=== PATIENT | male | born 1945 | race Caucasian/White ===

== ENCOUNTER 2019-09-01 09:09 | Emergency (ER) | payer MEDICARE, SELFPAY ==
--- NOTE | ~2019-09-01 | XR_ITS ---
XR hip RT min 2V DATE: 09/01/2019 09:42 INDICATION: Fall 5 days ago. Right hip pain. TECHNIQUE: AP and crosstable lateral views of right hip COMPARISON: 11/01/2011 right hip FINDINGS: There is mild to moderate right hip osteoarthritis. There is chondrocalcinosis. No fracture, dislocation, avascular necrosis or bone destruction of the right hip is evident. Normal alignment at the right sacroiliac joint and pubic symphysis. IMPRESSION: Osteoarthritis Chondrocalcinosis Reviewed, dictated and finalized at location B.
--- NOTE | ~2019-09-01 | XR_ITS ---
XR femur RT min 2V DATE: 09/01/2019 09:41 INDICATION: Fall 5 days ago. Posterior lateral right hip pain. TECHNIQUE: AP and lateral views of the right femur COMPARISON: 09/01/2019] right hip FINDINGS: There is mild/moderate osteoarthritis at the right hip joint. There is chondrocalcinosis at the right hip joint. There is osteoarthritis at the right knee joint involving particularly the patellofemoral compartment , including mild to moderate loss of height at the medial compartment.. No fracture, dislocation, periosteal reaction or bone destruction of the right femur is evident. No a vascular necrosis is evident. Of the right femur Femoral and popliteal arterial calcifications. IMPRESSION: Osteoarthritis at the hip and knee joints Chondrocalcinosis at right hip joint No fracture or dislocation Reviewed, dictated and finalized at location B.
[2019-09-01 09:12] VITALS: BP 132/65; PULSE 59; RESP 20; TEMP 36.6; O2SAT 94
--- NOTE | 2019-09-01 09:16 | ED.LOWEXIN ---
HPI - Extremity Injury (Lower) General Chief Complaint: Extremity Injury, Lower Stated Complaint: fall/rt hip/leg injury Time Seen by Provider: 09/01/19 09:25 Source: patient, family and RN notes reviewed History of Present Illness HPI Narrative: Patient is a 74-year-old male that presents the urgent care with complaints of fall to right hip. Patient states that he was getting out of the car on Saturday and fell into the area of the door. Patient states that the pain has worsened over the last couple days and his PCP advised him to stay out of the emergency room if possible. Patient states that he is supposed to be using a cane but does not use any his assistive walking devices. Patient also reports of being on a blood thinner. Denies any loss of consciousness or hitting his head. No other acute complaints. No acute distress noted. Patient read the plan of care. Related Data Home Medications Medication Instructions Recorded Confirmed amiodarone 200 mg tablet 200 mg PO DAILY tablet 05/21/19 06/06/19 carvedilol 25 mg tablet 25 mg PO Q12H 05/21/19 06/06/19 gabapentin 300 mg capsule 300 mg PO TID 05/21/19 06/06/19 lisinopril 10 mg tablet 10 mg PO DAILY 05/21/19 06/06/19 nitroglycerin 0.4 mg sublingual 0.4 mg SUBLINGUAL Q5M PRN 05/21/19 06/06/19 tablet bupropion HCl 100 mg tablet 100 mg PO DAILY tablet 06/06/19 06/06/19 insulin glargine U-300 conc 300 30 unit SUB-Q DAILY ml 06/06/19 06/06/19 unit/mL (1.5 mL) subcutaneous pen insulin glulisine U-100 100 5 - 10 unit SUB-Q TID ml 06/06/19 06/06/19 unit/mL subcutaneous solution Toujeo Max U-300 SoloStar 09/01/19 apixaban [Eliquis] mg 09/01/19 furosemide 09/01/19 indapamide mg 09/01/19 insulin glargine U-300 conc 09/01/19 tramadol mg PO 09/01/19 Allergies Allergy/AdvReac Type Severity Reaction Status Date / Time rofecoxib Allergy Intermediate Itching Verified 08/25/19 14:36 acetaminophen [From [place]] AdvReac Intermediate BREATHING Verified 08/25/19 14:39 PROBLEMS hydrocodone [From [place]] AdvReac Intermediate BREATHING Verified 08/25/19 14:39 PROBLEMS CLOPIDOGREL BISULFATE Allergy Mild ITCHING Uncoded 08/25/19 14:36 Review of Systems Review of Systems: Narrative: CONSTITUTIONAL: Denies fever, chills, or sweats. EYES: Denies visual changes, redness, or discharge. ENT: Denies rhinorrhea, congestion, sore throat, or otalgia. CARDIOVASCULAR: Denies chest pain, palpitations, or edema. RESPIRATORY: Denies cough or dyspnea. GASTROINTESTINAL: Denies abdominal pain, nausea, vomiting, or diarrhea. GENITOURINARY: Denies dysuria or hematuria. SKIN: Denies rash or itching. MUSCULOSKELETAL: Reports of right hip pain radiating down the right leg NEUROLOGIC: Denies headache, numbness, or weakness. All other systems reviewed are negative, except as documented in HPI. [facility] Past Medical History Medical History (Updated 09/01/19 @ 10:16 by JOURDAN Conroy) Arthritis H/O cardiac pacemaker ICD (implantable cardioverter-defibrillator) in place Surgical History Surgical History H/O arthroscopy of knee H/O arthroscopy of shoulder Hx of hernia repair Hx of sinus surgery Hx of transurethral resection of prostate Social History Social History Smoking status: Current every day smoker Second hand tobacco smoke exposure: No Smoking end date: 06/17/14 Alcohol intake: never Exam Narrative: Exam Narrative: GENERAL: This is a well-nourished, well-developed patient, in no apparent distress. HEAD: normocephalic, atraumatic. EYES: PERRL. Sclera clear/white. Vision is grossly intact. EARS: External ears normal NOSE: External nose normal with no obvious nasal discharge THROAT: Mucous membranes moist NECK: Neck supple CARDIOVASCULAR: Regular rate and rhythm without murmurs, gallops, or rubs. RESPIRATORY: Clear to auscultation. Breath sounds
== END 2019-09-01 10:18 | disposition home or self-care (01) ==
PROVIDERS: Emergency Provider Nurse Practitioner Family; PCP Family Medicine
DX: M25.551 Pain in right hip (principal); F17.200 Nicotine dependence, unspecified, uncomplicated; M19.90 Unspecified osteoarthritis, unspecified site; Z95.810 Presence of automatic (implantable) cardiac defibrillator; W19.XXXA Unspecified fall, initial encounter
CPT/HCPCS: 73502; 73552; 99214; G0463

== ENCOUNTER 2019-09-23 18:52 | Inpatient (IN) | payer MEDICARE, SELFPAY ==
[2019-09-23] VITALS (8 sets, daily range): BP systolic 155–187; BP diastolic 73–87; PULSE 59–65; RESP 14–28; TEMP 36.2–36.8; O2SAT 90–97; BMI 24.6
--- NOTE | ~2019-09-23 | US_ITS ---
EXAMINATION: US retroperitoneal comp DATE: 09/25/2019 13:06 INDICATION: Renal failure TECHNIQUE: Multiple grayscale and Doppler ultrasound images of the kidneys were obtained. COMPARISON: CT, 10/06/2017 FINDINGS: The right kidney measures 10.7 x 3.8 x 4.1 cm. The left kidney measures 11.2 x 5.6 x 4.6 cm . A 6 mm hypoechoic area in the lateral aspect of the kidney likely represents a small cyst. The kidn eys demonstrate increased parenchymal echogenicity. There is no hydronephrosis. The bladder is normal . IMPRESSION: 1. Medical renal disease. Reviewed, dictated and finalized at location B. IMPRESSION: 1. Medical renal disease.
--- NOTE | ~2019-09-23 | US_ITS ---
EXAMINATION: US venous doppler UE EXAM DATE: 09/24/2019 14:25 INDICATION: Left arm swelling. TECHNIQUE: Multiple grayscale, color flow, Doppler sonographic images of the left upper extremity vei ns obtained by technologist. Compression was performed where able. There is no prior study for coral chen. FINDINGS: Left upper extremity: Jugular vein: ------------> Normal. Subclavian vein: --------> Normal. Axillary vein:------------> Normal. Brachial vein:-----------> Normal. Basilic vein: ------------> Normal. Cephalic vein: ----------> Normal. Radial vein: ------------> Normal. Ulnar vein: > Normal. IMPRESSION: No deep venous thrombosis of the left upper extremity. Reviewed, dictated and finalized at location A.
--- NOTE | ~2019-09-23 | XR_ITS ---
XR chest 1V portable 09/23/2019 20:13 Indication: Dyspnea. CHF. Procedure: AP portable chest Comparison: Comparison to multiple prior studies sequentially, with oldest reviewed study dated 06/28. Findings: Moderate cardiomegaly. Interstitial edema. Small pleural effusions. No pneumothorax. The th ere are new pacemaker leads since prior examination. Impression: 1: Cardiomegaly with interstitial edema. 2: Small pleural effusions. Reviewed, dictated and finalized at location A. Impression: 1: Cardiomegaly with interstitial edema. 2: Small pleural effusions.
--- NOTE | ~2019-09-23 | US_ITS ---
EXAMINATION: US venous doppler LE EXAM DATE: 09/24/2019 14:25 INDICATION: Bilateral leg swelling. TECHNIQUE: Multiple grayscale, color flow and Doppler images of the lower extremity deep venous syste ms bilaterally were obtained and reviewed. There is no prior study for comparison. FINDINGS: Right side: The right common femoral, femoral and profunda veins demonstrate normal color flow, respi ratory variation, augmentation and compressibility. Compressibility, color flow confirmed within the right popliteal, posterior tibial, peroneal, and greater saphenous veins. Left side: The left common femoral, femoral and profunda veins demonstrate normal color flow, respira tory variation, augmentation and compressibility. Compressibility, color flow confirmed within the l eft popliteal, posterior tibial, peroneal, and greater saphenous veins. IMPRESSION: 1. No lower extremity deep venous thrombosis bilaterally. Reviewed, dictated and finalized at location A.
--- NOTE | 2019-09-23 19:27 | ECG_ITS ---
Measurements Intervals [place] Rate: 60 P: 202 MT: 154 QRS: 189 QRSD: 210 T: 9 QT: 564 QTc: 564 Interpretive Statements ELECTRONIC ATRIAL PACEMAKER ELECTRONIC VENTRICULAR PACEMAKER BASELINE WANDER- I, II, V2-V6 NO FURTHER INTERPRETATION IS POSSIBLE ATYPICAL ECG Electronically Signed On 09-24-2019 7:04:35 CDT by Bertrand Grimaldo D.O.
--- NOTE | 2019-09-23 19:53 | PC.NURSE ---
Assumed care of pt at this time. report from ENID Hernandez
[2019-09-23 20:16] LABS: Basophils Absolute Auto 0.1 K/mm3 (0.0-0.1); Basophils Percent Auto 0.7 % (0.2-1.2); Eosinophils Absolute Auto 0.1 K/mm3 (0-0.3); Eosinophils Percent Auto 1.2 % (0-4.4); Hematocrit 31.6 % (42.0-52.0); Hemoglobin 9.7 g/dL (14.0-18.0); Immature Granulocyte Absolute 0.02 K/mm3 (0.00-0.031); Immature Granulocyte Percent A 0.3 % (0-0.5); Lymphocytes Absolute Auto 0.86 K/mm3 (0.9-3.2); Lymphocytes Percent Auto 12.4 % (18.3-44.2); Mean Corpuscular HGB Conc 30.7 g/dl (32-36); Mean Corpuscular Hemoglobin 25.4 pg (26-34); Mean Corpuscular Volume 82.7 fl (80-100); Mean Platelet Volume 11.1 fl (7.4-10.4); Monocytes Absolute Auto 0.5 K/mm3 (0.1-0.6); Monocytes Percent Auto 6.5 % (2.6-8.5); Neutrophils Absolute Auto 5.5 K/mm3 (1.3-6.7); Neutrophils Percent Auto 78.9 % (45.5-73.1); Platelet Count Result 210 k/mm3 (150-375); Red Blood Count 3.82 M/mm3 (4.6-6.20); Red Cell Distribution Width 15.1 % (11.5-14.5); White Blood Count 6.9 K/mm3 (4.5-10.0)
[2019-09-23 20:29] LABS: Alanine Aminotransferase 25 U/L (4-50); Albumin Level 3.6 g/dL (3.5-5.1); Alkaline Phosphatase 297 U/L (38-126); Aspartate Amino Transferase 29 U/L (17-59); Bilirubin,Total 0.8 mg/dL (0.2-1.3); Blood Urea Nitrogen 52 mg/dL (9-20); Calcium 8.6 mg/dL (8.4-10.2); Carbon Dioxide 29 mmol/L (22-30); Chloride 103 mmol/L (98-107); Estimated CRCL calculation 22 ml/min; Estimated Glomerular Filt Rate 23; Glucose 255 mg/dL (75-110); Potassium 3.3 mmol/L (3.4-5.0); Sodium 138 mmol/L (137-145)
[2019-09-23 20:43] LABS: NT Pro B Type Natriuretic Pept 7390 PG/ML (5-100); Troponin I 0.086 ng/mL (0.000-0.034)
[2019-09-23 20:54] LABS: INR 1.3; Partial Thromboplastin Time 32.7 SECONDS (22.3-36.8); Prothrombin Time 16.2 Seconds (11.1-14.7)
[2019-09-23 21:03] LABS: D Dimer 1.43 ug/mL (<0.48)
--- NOTE | 2019-09-23 22:08 | ED.SOB ---
HPI - SOB/Dyspnea General Chief Complaint: Shortness of Breath/Dyspnea Stated Complaint: SOB,EDEMA, HX CHF Time Seen by Provider: 09/23/19 19:18 Source: patient and EMS Mode of arrival: EMS Limitations: other (pt poor hostorian, most hx from s.o.) History of Present Illness HPI Narrative: 74 m h/o uri sx for 2-3 weeks which have been treated twice with abx, most recently finishing up amoxcil now had been improving until yesterday when they report he started getting more sob, and swelling of ble and lue he had a cough but it is improved, no fevers MD elicited complaint: cough and chest pain Pertinent past history: congestive heart failure Onset (ago): week(s) Severity: moderate Exacerbating factors: exertion Relieving factors: nothing Known history of: congestive heart failure (aicd) Related Data Home Medications Medication Instructions Recorded Confirmed amiodarone 200 mg tablet 200 mg PO DAILY tablet 05/21/19 06/06/19 carvedilol 25 mg tablet 25 mg PO Q12H 05/21/19 06/06/19 gabapentin 300 mg capsule 300 mg PO TID 05/21/19 06/06/19 lisinopril 10 mg tablet 10 mg PO DAILY 05/21/19 06/06/19 nitroglycerin 0.4 mg sublingual 0.4 mg SUBLINGUAL Q5M PRN 05/21/19 06/06/19 tablet bupropion HCl 100 mg tablet 100 mg PO DAILY tablet 06/06/19 06/06/19 insulin glargine U-300 conc 300 30 unit SUB-Q DAILY ml 06/06/19 06/06/19 unit/mL (1.5 mL) subcutaneous pen insulin glulisine U-100 100 5 - 10 unit SUB-Q TID ml 06/06/19 06/06/19 unit/mL subcutaneous solution Toujeo Max U-300 SoloStar 09/01/19 apixaban [Eliquis] mg 09/01/19 furosemide 09/01/19 indapamide mg 09/01/19 insulin glargine U-300 conc 09/01/19 tramadol mg PO 09/01/19 albuterol sulfate INHALATION 09/23/19 amiodarone 09/23/19 amlodipine 09/23/19 amoxicillin 09/23/19 apixaban [Eliquis] mg 09/23/19 carvedilol 09/23/19 gabapentin 09/23/19 lisinopril 09/23/19 losartan 09/23/19 nitroglycerin mg 09/23/19 Allergies Allergy/AdvReac Type Severity Reaction Status Date / Time rofecoxib Allergy Intermediate Itching Verified 09/23/19 19:06 acetaminophen [From [place]] AdvReac Intermediate BREATHING Verified 09/23/19 19:06 PROBLEMS hydrocodone [From [place]] AdvReac Intermediate BREATHING Verified 09/23/19 19:06 PROBLEMS CLOPIDOGREL BISULFATE Allergy Mild ITCHING Uncoded 09/23/19 19:06 Review of Systems Review of Systems: All systems reviewed & are unremarkable except as noted in HPI and below Constitutional: Constitutional: Denies chills, Denies fever(s) and Reports weakness ENT: Denies dysphagia and Denies dizziness Cardiovascular: Cardiovascular: Denies chest pain and Denies rapid heart rate Respiratory: Respiratory: Denies chest congestion, Reports cough, Reports dyspnea and Denies wheezing Gastrointestinal: Gastrointestinal: Denies abdominal pain, Denies diarrhea and Denies vomiting Musculoskeletal: Musculoskeletal: Reports joint swelling Neurologic: Denies headache(s) and Denies weakness PMFSH Past Medical History Medical History Arthritis H/O cardiac pacemaker ICD (implantable cardioverter-defibrillator) in place Surgical History Surgical History H/O arthroscopy of knee H/O arthroscopy of shoulder Hx of hernia repair Hx of sinus surgery Hx of transurethral resection of prostate Family History Family History Father Depression Family history of alcoholism Malignant neoplasm of prostate Acute myocardial infarction, Onset Age: 70 Family history of cardiovascular disease, Onset Age: 70 Sibling Family history of hepatitis Malignant neoplasm of prostate Mother Family history of malignant neoplasm of brain, Onset Age: 81 Other Cerebrovascular accident Diabetes mellitus Family history of kidney disease Hypertension Soci
[2019-09-23] MEDS: POTASSIUM CHLORIDE 20 MEQ PACKET (FOR LIQUID) 40 MEQ PO (22:13)
[2019-09-23] MEDS: NITROGLYCERIN OINTMENT 1 INCH DOSE TRANSDERM (22:14)
[2019-09-23] MEDS: FUROSEMIDE INJ 100 MG/10 ML VIAL 80 MG IV PUSH (22:17)
[2019-09-23] MEDS: ENOXAPARIN 80 MG/0.8 ML SYRINGE SUB-Q (22:19)
--- NOTE | 2019-09-23 23:07 | ADMGEN ---
This patient, Arnol Mason, was admitted to IMU Room 206-01 from ER 09/23/19 1725. Patient/family oriented to hospital policies and general routines including ID bracelet, bed and alarms, visiting hours, pain management, procedures, bathroom and other care routines, personal items, smoking policy, room service/diet, and visiting hours. Valuables list has been completed. Information on how to activate the Rapid Response Team has been discussed. Patient/Family are encouraged to report perceived risks to care and to ask questions if they do not understand what they are told or what they should do.
[2019-09-23 23:52] LABS: Troponin I 0.082 ng/mL (0.000-0.034)
[2019-09-24] VITALS (15 sets, daily range): BP systolic 147–180; BP diastolic 69–75; PULSE 59–61; RESP 16–24; TEMP 36–36.6; O2SAT 94–99
[2019-09-24 02:11] LABS: Blood Urea Nitrogen 48 mg/dL (9-20); Calcium 8.1 mg/dL (8.4-10.2); Carbon Dioxide 27 mmol/L (22-30); Chloride 105 mmol/L (98-107); Estimated CRCL calculation 23 ml/min; Estimated Glomerular Filt Rate 24; Glucose 238 mg/dL (75-110); Potassium 3.4 mmol/L (3.4-5.0); Sodium 138 mmol/L (137-145)
[2019-09-24] MEDS: NITROGLYCERIN OINTMENT 1 INCH DOSE TRANSDERM (05:50)
--- NOTE | 2019-09-24 06:28 | PM.IMHP ---
H&P: HPI History of Present Illness Chief complaint: Shortness of breath, swelling Narrative: Date and time of patient contact: 09/24/2019 at 5:30 a.m. Arnol Mason is a 74 year old male with a past medical history of systolic and diastolic congestive heart failure, atrial fibrillation, and type 2 diabetes mellitus who presented to the ER with shortness of breath and increased swelling. The patient reports that he has been noticing increased swelling of bilateral lower extremities and left upper extremity for the last 3 months. He has gained about 20 lb in the last 2 months with the last 10 lb being in the last 7 days. He reports that he has had a dry cough He had been treated with 2 different courses of antibiotics and had just finished a course of amoxicillin yesterday. He thought that his cough was getting better. However given that his swelling had continued to worsen he decided come to the ER. He noticed that the swelling was 1st as lower legs and mildly in his arm. But as time went on the edema as moved up his legs in over the last week has been in his legs and abdomen and his left arm has become markedly more swollen. He had had a prior DVT he reports that he has always had intermittent chest pain ever since his 1st MO in 1998. He has had multiple caths but is coronary artery disease has never been above 30 or 40%. He has not had any changes in his intermittent chest pain or any increased chest pain recently. He denies any palpitations. He has had increased dyspnea on exertion and orthopnea. He has not had any fevers. He has chronically chilled since he was started on blood thinners about 6 months ago. He has had progressive decrease in his appetite over the last 3 years. Upon review of old records it appears that the patient was being considered for Watchman procedure and recently was given orders for an outpatient echocardiogram and cardiac catheterization in April 2019. It is unclear if he has already had these procedures done or there is still pending. Review of Systems Review of Systems: Narrative: 12 systems were reviewed with pertinent positives and negatives per HPI. Except as documented in the HPI, all other systems were reviewed and are negative. [facility] Past Medical History Medical History (Updated 09/24/19 @ 08:11 by Hue He DO) Arthritis Atrial fibrillation/flutter Managed by Dr. Jeff at [facility] on amiodarone and Eliquis since March 2018, with discussion of Watchman procedure April 2019 due to a concern for falls BPH (benign prostatic hyperplasia) Cataract of left eye Chronic kidney disease, stage 3 Dr. Guzman Coronary artery disease Nonobstructive Diabetic nephropathy Diabetic neuropathy DVT of left axillary vein, acute September 2018 GERD without esophagitis Hypertensive retinopathy of both eyes Mild pulmonary hypertension Mixed hyperlipidemia Non-proliferative diabetic retinopathy, both eyes Severe in the right eye mild in the left Systolic congestive heart failure Echocardiogram 07/17/2018 normal left ventricular size. Moderately reduced global left ventricular systolic function with akinetic inferior basal wall, ejection fraction 35% normal right ventricular size and systolic function, pacemaker seen right atrium/ventricle, severe concentric left ventricular hypertrophy, speckled appearance of myocardium suggestive of infiltrative process, mild aortic regurgitation. Elevated left ventricular and diastolic pressure, right ventricular systolic pressure of 44 consistent with mild pulmonary hypertension TIA (transient ischemic attack) Surgical History Surgical History (Updated 09/24/19 @ 07:33 by Hue He, DO) Biventricular implantable cardioverter-defibrillator (ICD) in situ Upgrade to Bi V ICD [facility] 08/05/2018 H/O arthroscopy of knee H/O arthroscopy of shoulder H/O cardiac pacemaker Hx of hernia repair Bilateral inguinal hernia repair in 2013 with mesh with failure of t
[2019-09-24] MEDS: ASPIRIN 81 MG CHEWABLE TABLET PO (08:08)
[2019-09-24] MEDS: POTASSIUM CHLORIDE 20 MEQ TABLET 40 MEQ PO (08:08)
[2019-09-24] MEDS: GABAPENTIN 300 MG CAPSULE PO ×3 (08:08→16:12)
[2019-09-24] MEDS: APIXABAN 5 MG TABLET PO ×2 (08:08→16:13)
[2019-09-24] MEDS: carvediloL 25 MG TABLET PO ×2 (08:08→20:26)
[2019-09-24] MEDS: FUROSEMIDE INJ 40 MG/4 ML VIAL IV PUSH ×2 (08:08→20:26)
[2019-09-24] MEDS: INDAPAMIDE 2.5 MG TABLET PO (08:08)
[2019-09-24] MEDS: PANTOPRAZOLE 40 MG TABLET PO ×2 (08:09→16:12)
[2019-09-24] MEDS: AMIODARONE HCL 200 MG TABLET PO (08:09)
[2019-09-24] MEDS: INSULIN GLARGINE (*BKC) 100 UNITS/ML 30 UNITS SUB-Q (08:09)
[2019-09-24] MEDS: buPROPion HCL 100 MG TABLET PO (08:09)
[2019-09-24] MEDS: AMLODIPINE BESYLATE 5 MG TABLET PO (08:09)
[2019-09-24] MEDS: LOSARTAN POTASSIUM 50 MG TABLET PO (08:12)
[2019-09-24 08:26] LABS: Glucose Point of Care 153 (65-105)
[2019-09-24 10:44] LABS: Glucose Point of Care 40 (65-105)
[2019-09-24] MEDS: GLUCOSE ORAL GEL 15 GM OF GLUCSE IN 37.5 GM TUBE PO ×2 (10:52→11:20)
[2019-09-24 11:45] LABS: Glucose Point of Care 72 (65-105)
[2019-09-24] MEDS: DEXTROSE 50% 25 GM/50 ML SYRINGE IV PUSH (11:45)
[2019-09-24 14:41] LABS: Glucose Point of Care 61 (65-105)
[2019-09-24 14:41] LABS: Glucose Point of Care 118 (65-105)
--- NOTE | 2019-09-24 17:05 | PM.IMPN ---
Progress Note: A&P Assessment and Plan (1) CHF exacerbation: Qualifiers: Heart failure type: systolic Qualified Code(s): I50.23 - Acute on chronic systolic (congestive) heart failure Code(s): I50.9 - Heart failure, unspecified Status: Acute Assessment and Plan: The pt has a hx of CHF with EF 35% on echo 06/2018. The pt reports recent 15-20lb weight gain with 10 lb in the past 7 days. He reports that he was not taking his lasix for 1 month up until 4 days ago. He endorses lower extremity edema, dyspnea, PND, and orthopnea. BNP was elevated at 7390. He has had excellent urine output with IV lasix. Will hold the patient's oral Lasix. He has been placed on Lasix 40 mg IV b.i.d. He received a dose of Lasix 80 mg in the ER. Will continue to monitor. Continue to monitor daily weights Continue to monitor strict input and output 2gm sodium restriction (2) Chronic kidney disease, stage 3: Code(s): N18.3 - Chronic kidney disease, stage 3 (moderate) Status: Acute Assessment and Plan: The patient's Cr is 2.6. BUN is 48. I am unsure of his baseline. Cr from 03/26/18 was 1.4. Will try to obtain labs for a more recent baseline Will monitor creatinine closely with diuresis (3) Type 2 diabetes mellitus with hyperglycemia: Qualifiers: Diabetes mellitus terminal computer operator insulin use: with terminal computer operator use Qualified Code(s): E11.65 - Type 2 diabetes mellitus with hyperglycemia; Z79.4 - snf (current) use of insulin Code(s): E11.65 - Type 2 diabetes mellitus with hyperglycemia Status: Chronic Assessment and Plan: The pt had hypoglycemia this AM with blood sugar of 40. He was treated with PO glucose replacement. Will hold lantus and glulisine for now and monitor due to hypoglycemia Continue ACHS Continue SSI Continue hypoglycemia protocol (4) Hypokalemia: Code(s): E87.6 - Hypokalemia Status: Acute Assessment and Plan: The patient's potassium was 3.3 in the ED. He received 40mEq in the ED and an additional 40mEq this AM. Will recheck potassium this afternoon. Will continue to monitor (5) Essential (primary) hypertension: Code(s): I10 - Essential (primary) hypertension Status: Chronic Assessment and Plan: Blood pressures are reviewed and are elevated to 180/70 this afternoon. Continue amlodipine Continue carvedilol Continue losartan Resume lisinopril Will continue to monitor (6) Major depressive disorder, single episode, unspecified: Code(s): F32.9 - Major depressive disorder, single episode, unspecified Status: Chronic Assessment and Plan: Continue bupropion (7) Atrial fibrillation/flutter: Code(s): I48.91 - Unspecified atrial fibrillation; I48.92 - Unspecified atrial flutter Status: Chronic Assessment and Plan: The pt has a hx of atrial fibrillation. He is s/p pacemaker and is being considered for Watchman by Dr. Jeff due to concern for fall risk. His rate is well-controlled today and telemetry was reviewed with paced rhythm. Continue amiodarone Continue apixaban Continue carvedilol (8) Chronic back pain: Code(s): M54.9 - Dorsalgia, unspecified; G89.29 - Other chronic pain Status: Chronic Assessment and Plan: The patient's pain is well-controlled today. Continue tramadol and gabapentin (9) Coronary artery disease: Code(s): I25.10 - Atherosclerotic heart disease of [place] coronary artery without angina pectoris Status: Chronic Assessment and Plan: The pt has a hx of CAD. He is established with Dr. Jeff at [facility]. He underwent cardiac cath 02/2018 with nonobstructive coronary artery disease. Troponins was elevated at 0.086 with a flat trend to 0.080, likely due to his acute CHF exacerbation and renal insufficiency. EKG revealed paced rhythm with normal rate. He saw Dr. Jeff 06/19/19 who discussed watchm
[2019-09-24 18:29] LABS: Glucose Point of Care 73 (65-105)
[2019-09-24 20:43] LABS: Potassium 3.4 mmol/L (3.4-5.0)
[2019-09-24 20:54] LABS: Glucose Point of Care 98 (65-105)
[2019-09-25] VITALS (17 sets, daily range): BP systolic 147–185; BP diastolic 67–83; PULSE 59–68; RESP 16–20; TEMP 35.9–36.9; O2SAT 90–97
--- NOTE | 2019-09-25 | ECHO_ITS ---
Patient Info Name: Arnol Mason Age: 74 years : 1945 Gender: Male Ht: 70 in Wt: 173 lbs BSA: 1.98 m2 HR: 82 bpm BP: 183 / 67 mmHg Heart Rhythm: Paced Technical Quality: Good Exam Date: 09/25/2019 8:21 AM Exam Location: [facility] Pulmonary Patient Status: Inpatient Admit Date: 09/23/2019 Staff Ordering Physician: Keena Brand PA-C It Applications Manager: Arnol Waldrop RDCS Attending Provider: Keena Brand PA-C Referring Physician: Sunday LEAL; Exam Type: CA echo doppler color flow Study Info Indications R06.00 - Dyspnea, unspecified Complete two-dimensional, color flow and Doppler transthoracic echocardiogram is performed. Strain analysis performed. History/Risk Factors CHF exacerbation; CAD w/ ICD, dyspnea, CKD III, edema. Summary 1. Left ventricular chamber dimension is moderately enlarged. 2. Left ventricular systolic function is moderately reduced, estimated at 35-40%. 3. There is severe concentric increased left ventricular wall thickness. 4. The left ventricular diastolic function is grade III diastolic dysfunction. 5. E/e' 23 is significantly elevated. 6. Global longitudinal strain is abnormal at -8.8%. 7. Linear artifact in right ventricle suggestive of catheter(s), pacemaker lead(s), or ICD lead(s). 8. Left atrial chamber dimension is moderately enlarged. 9. Right atrial chamber dimension is moderately enlarged. 10. Linear artifact in the right atrium suggestive of catheter(s), pacemaker lead(s), or ICD lead(s). 11. There is mild aortic valve sclerosis. 12. There is trace aortic valve regurgitation. 13. The mitral valve has mildly thickened leaflets and mildly calcified annulus. 14. There is mild to moderate mitral valve regurgitation. 15. There is mild to moderate tricuspid valve regurgitation. 16. Severe pulmonary hypertension, estimated pulmonary arterial systolic pressure is 74 mmHg. 17. There is trace pulmonic regurgitation. 18. Small atheroma in anterior and posterior aortic root. 19. Dilated inferior vena cava with <50% collapse upon inspiration consistent with significantly elevated right atrial pressure, 15 mmHg. 20. There is small circumferential pericardial effusion. Left Ventricle E/e' 23 is significantly elevated. Global longitudinal strain is abnormal at -8.8%. Left ventricular chamber dimension is moderately enlarged. Left ventricular systolic function is moderately reduced, estimated at 35-40%. There is severe concentric increased left ventricular wall thickness. The left ventricular diastolic function is grade III diastolic dysfunction. Right Ventricle Linear artifact in right ventricle suggestive of catheter(s), pacemaker lead(s), or ICD lead(s). Right ventricular chamber dimension is normal. Right ventricular systolic function is normal. Left Atria Left atrial chamber dimension is moderately enlarged. Right Atria Linear artifact in the right atrium suggestive of catheter(s), pacemaker lead(s), or ICD lead(s). Right atrial chamber dimension is moderately enlarged. Aortic Valve The aortic valve is trileaflet. There is mild aortic valve sclerosis. There is no aortic valve stenosis. There is trace aortic valve regurgitation. Pulmonic Valve There is trace pulmonic regurgitation. Mitral Valve The mitral valve has mildly thickened leaflets and mildly calcified annulus. There is no mitral valve stenosis. There is mild to moderate mitral valve regurgitation. Tricuspid Valve There is
[2019-09-25 04:44] LABS: Hematocrit 34.8 % (42.0-52.0); Hemoglobin 10.7 g/dL (14.0-18.0); Mean Corpuscular HGB Conc 30.7 g/dl (32-36); Mean Corpuscular Hemoglobin 25.5 pg (26-34); Mean Corpuscular Volume 83.1 fl (80-100); Mean Platelet Volume 10.5 fl (7.4-10.4); Platelet Count Result 252 k/mm3 (150-375); Red Blood Count 4.19 M/mm3 (4.6-6.20); Red Cell Distribution Width 15.3 % (11.5-14.5); White Blood Count 8.6 K/mm3 (4.5-10.0)
[2019-09-25 04:54] LABS: Albumin Level 3.6 g/dL (3.5-5.1); Blood Urea Nitrogen 50 mg/dL (9-20); Calcium 8.9 mg/dL (8.4-10.2); Carbon Dioxide 31 mmol/L (22-30); Chloride 103 mmol/L (98-107); Estimated CRCL calculation 22 ml/min; Estimated Glomerular Filt Rate 23; Glucose 74 mg/dL (75-110); Magnesium 2.1 mg/dL (1.6-2.3); Phosphorus 4.2 mg/dL (2.5-4.5); Potassium 3.2 mmol/L (3.4-5.0); Sodium 140 mmol/L (137-145)
[2019-09-25 08:35] LABS: Glucose Point of Care 83 (65-105)
[2019-09-25] MEDS: APIXABAN 5 MG TABLET PO ×2 (09:43→17:32)
[2019-09-25] MEDS: INDAPAMIDE 2.5 MG TABLET PO (09:43)
[2019-09-25] MEDS: PANTOPRAZOLE 40 MG TABLET PO ×2 (09:43→17:32)
[2019-09-25] MEDS: AMLODIPINE BESYLATE 5 MG TABLET PO (09:43)
[2019-09-25] MEDS: lisinopriL 10 MG TABLET PO (09:43)
[2019-09-25] MEDS: carvediloL 25 MG TABLET PO ×2 (09:43→20:16)
[2019-09-25] MEDS: FUROSEMIDE INJ 40 MG/4 ML VIAL IV PUSH (09:43)
[2019-09-25] MEDS: AMIODARONE HCL 200 MG TABLET PO (09:43)
[2019-09-25] MEDS: LOSARTAN POTASSIUM 50 MG TABLET PO (09:43)
[2019-09-25] MEDS: ASPIRIN 81 MG CHEWABLE TABLET PO (09:43)
[2019-09-25] MEDS: POTASSIUM CHLORIDE 20 MEQ TABLET 40 MEQ PO (09:43)
[2019-09-25] MEDS: buPROPion HCL 100 MG TABLET PO (09:43)
[2019-09-25] MEDS: GABAPENTIN 300 MG CAPSULE PO ×3 (09:43→17:32)
--- NOTE | 2019-09-25 10:06 | PM.IMPN ---
Progress Note: A&P Assessment and Plan (1) CHF exacerbation: Qualifiers: Heart failure type: systolic Qualified Code(s): I50.23 - Acute on chronic systolic (congestive) heart failure Code(s): I50.9 - Heart failure, unspecified Status: Acute Assessment and Plan: The pt has a hx of CHF with EF 35% on echo 06/2018. The pt reported recent 15-20lb weight gain with 10 lb in the past 7 days with dyspnea, PND, orthopnea, and edema at presentation. BNP was 7390. He reports that he was not taking his lasix for approximately 1 month which he reports was on hold due to his renal function. He resumed his lasix for 4 days prior to admission. He was given IV lasix for diuresis with excellent urine output. He reports that his dyspnea has improved significantly. His edema has also improved today. He feels much better. His echo was repeated today and EF is unchanged at 35-40% but his diastolic function and pulmonary HTN have worsened compared his previous echo from 06/2018. This may be due to poorly controlled HTN. Will order lipid panel as pt is not on a statin Consult placed to cardiology, recommendations are greatly appreciated Will discontinue IV lasix and resume the patients prior to admission lasix dose of 20mg Continue to monitor daily weights Continue to monitor strict input and output 2gm sodium restriction (2) Chronic kidney disease, stage 3: Code(s): N18.3 - Chronic kidney disease, stage 3 (moderate) Status: Acute Assessment and Plan: The patient's Cr is 2.6. BUN is 48. I am unsure of his baseline. Cr from 03/26/18 was 1.4. I have requested records which are pending. He is established with Dr. Guzman. Cr today is 2.7 and BUN 50. He had excellent urine output to diuresis. Will try to obtain labs for a more recent baseline Consult placed to nephrology, recommendations are greatly appreciated Will monitor creatinine closely with diuresis (3) Type 2 diabetes mellitus with hyperglycemia: Qualifiers: Diabetes mellitus mcfp insulin use: with mcfp use Qualified Code(s): E11.65 - Type 2 diabetes mellitus with hyperglycemia; Z79.4 - parts counterman (current) use of insulin Code(s): E11.65 - Type 2 diabetes mellitus with hyperglycemia Status: Chronic Assessment and Plan: The pt had hypoglycemia 09/24 with blood sugar of 40. He was treated with PO glucose replacement. I will order A1C. FBS today was 74. Will consult medical educator Continue to hold lantus and glulisine for now and monitor due to hypoglycemia Continue ACHS Continue SSI Continue hypoglycemia protocol (4) Hypokalemia: Code(s): E87.6 - Hypokalemia Status: Acute Assessment and Plan: Potassium was 3.2 today. Will give 40 mEq of potassium Will continue to monitor (5) Essential (primary) hypertension: Code(s): I10 - Essential (primary) hypertension Status: Chronic Assessment and Plan: Blood pressures are reviewed and are elevated but improving. Dr. Hurst and Dr. Bauer were consulted and have recommended to discontinue amlodipine due to lower extremity edema and discontinue lisinopril and increase his losartan. It is unclear why he was on both of these prior to admission but this could be contributing to his renal insufficiency. Discontinue amlodpine due to lower extremity edema Continue carvedilol Increase losartan to 100mg PO QD Discontinue lisinopril Will continue to monitor (6) Major depressive disorder, single episode, unspecified: Code(s): F32.9 - Major depressive disorder, single episode, unspecified Status: Chronic Assessment and Plan: Continue bupropion (7) Atrial fibrillation/flutter: Code(s): I48.91 - Unspecified atrial fibrillation; I48.92 - Unspecified atrial flutter Status: Chronic Assessment and Plan: The pt has a hx of atrial fibrillation. He is s
--- NOTE | 2019-09-25 11:21 | PM.CNNEP ---
Assessment and Plan Assessment and plan (1) Chronic kidney disease, stage 3: Code(s): N18.3 - Chronic kidney disease, stage 3 (moderate) Status: Acute Assessment and Plan: The patient has chronic kidney disease. According to [facility] records his creatinine has been elevated for many years. The last time before this his creatinine was 1.4 in 2018. Most likely he has chronic kidney disease secondary to hypertension and diabetes. We will check serology and immunofixation to evaluate his kidney situation on a long-term basis. Patient also has an elevated creatinine higher than his baseline. It is unclear whether this is acute on chronic or if this is just progression of his chronic disease. He was on diuretics recently and so this could have made his creatinine a little bit higher. However the dose of the diuretics is fairly low. (2) Left upper extremity swelling: Code(s): M79.89 - Other specified soft tissue disorders Status: Acute Assessment and Plan: The patient has global swelling. Both legs both hips some in his lower abdomen and also has some in his left arm. It is unclear why he has it in his left arm. Perhaps he sleeps on his left side more than his right side. He does have pulmonary hypertension and systolic congestive heart failure which could give him some swelling. He also has renal insufficiency and so salt excretion could be an issue. He could have problems with proteinuria and get swelling with that as well. He is also on amlodipine which can cause swelling. He could also simply be eating more salt than usual. It is unclear why suddenly he is so much more swollen now than he was 5 days ago. (3) Coronary artery disease: Code(s): I25.10 - Atherosclerotic heart disease of [place] coronary artery without angina pectoris Status: Chronic Assessment and Plan: The patient has nonobstructive coronary disease. No chest pain. (4) Atrial fibrillation/flutter: Code(s): I48.91 - Unspecified atrial fibrillation; I48.92 - Unspecified atrial flutter Status: Chronic Assessment and Plan: The patient has this underlying a pacer rhythm on his EKG. (5) Essential (primary) hypertension: Code(s): I10 - Essential (primary) hypertension Status: Chronic Assessment and Plan: Blood pressure has been a little bit on the high side while he has been here. We need to stop his amlodipine to help his swelling. We can increase his losartan [id number] per day. He does not need both lisinopril and losartan. So I will stop the latter. (6) Type 2 diabetes mellitus with hyperglycemia: Qualifiers: Diabetes mellitus group home insulin use: with salvage determiner use Qualified Code(s): E11.65 - Type 2 diabetes mellitus with hyperglycemia; Z79.4 - prison (current) use of insulin Code(s): E11.65 - Type 2 diabetes mellitus with hyperglycemia Status: Chronic Assessment and Plan: His sugars are not Very well controlled. History of Present Illness Reason for Consult Consult date: 09/25/19 Chief Complaint Chief complaint: Shortness of breath, swelling History of Present Illness Narrative: Arnol is a very pleasant gentleman who has chronic kidney disease. He was seeing Dr. Guzman in the past however canceled his appointment in October of 2018 and he never rescheduled. Dr. Guzman saw him twice in the office but the patient did not get his labs or ultrasound for his evaluation either time. In 2018 his creatinine was 1.4. The patient says he was well until 3 days ago when he suddenly developed severe swelling in both legs and his hips and his left arm. He tell me 5 days ago he had no swelling at all. He says that in the past he has had some swelling off and on but nothing like this. He denies any shortness of breath. The patient denies any fevers, chills, cough, bloody urine, foamy urine, kidney stones, bladder infections. No chest pain or short
[2019-09-25 12:02] LABS: Glucose Point of Care 154 (65-105)
[2019-09-25 13:54] LABS: Basophils Percent Auto 0.4 % (0.2-1.2); Eosinophils Absolute Auto 0.1 K/mm3 (0-0.3); Eosinophils Percent Auto 1.2 % (0-4.4); Hematocrit 33.9 % (42.0-52.0); Hemoglobin 10.5 g/dL (14.0-18.0); Immature Granulocyte Absolute 0.01 K/mm3 (0.00-0.031); Immature Granulocyte Percent A 0.1 % (0-0.5); Lymphocytes Absolute Auto 0.88 K/mm3 (0.9-3.2); Lymphocytes Percent Auto 12.7 % (18.3-44.2); Mean Corpuscular Hemoglobin 25.8 pg (26-34); Mean Corpuscular Volume 83.3 fl (80-100); Mean Platelet Volume 10.2 fl (7.4-10.4); Monocytes Absolute Auto 0.4 K/mm3 (0.1-0.6); Monocytes Percent Auto 6.2 % (2.6-8.5); Neutrophils Absolute Auto 5.5 K/mm3 (1.3-6.7); Neutrophils Percent Auto 79.4 % (45.5-73.1); Platelet Count Result 201 k/mm3 (150-375); Red Blood Count 4.07 M/mm3 (4.6-6.20); Red Cell Distribution Width 15.2 % (11.5-14.5); White Blood Count 6.9 K/mm3 (4.5-10.0)
[2019-09-25 14:08] LABS: Creatine Kinase 71 U/L (55-170)
[2019-09-25 14:16] LABS: Complement C3 103 mg/dL (88-165); Erythrocyte Sedimentation Rate 49 mm/hr (0-20)
[2019-09-25 15:16] LABS: Cholesterol 148 mg/dL (0-200); HDL Direct 40 mg/dL; Triglycerides 148 mg/dL (<150)
[2019-09-25 15:27] LABS: LDL Cholesterol Direct 79 mg/dL
--- NOTE | 2019-09-25 15:29 | PM.CNCAR ---
Assessment and Plan Additional Plan 74-year-old man with long established diagnosis of nonischemic cardiomyopathy in the hospital with biventricular failure and volume overload Patient states things are improving with furosemide being given intravenously now Agree with Dr. crystal vogel impression full thin Angus inhibitor and ARB should not be part of his regimen I would agree with higher dose of losartan in stopping the lisinopril It is tempting to add some spironolactone however the patient recalls being on this drug in the past and 1 would presume that the physicians at the [facility] had good reason to discontinue with. Patient is hoping to go home in the next 24-48 hours as his edema resolves I do not have any strong objection to that the sooner views discharge the less he is exposed to Coronavirus Devin Bauer MD [facility] History of Present Illness History of Present Illness Consult date/time: Date of service: 09/25/19 15:29 Consult reason: congestive heart failure Reason For Visit: Shortness of breath, swelling Narrative: This is a 74-year-old man of seeing at the request of the hospitalist because he came into the hospital with decompensated congestive heart failure. He has been in the hospital for couple of days at this time and we are asked to see him assist with his care/management. He appears to be very comfortable upon entering the room and does not have any distressed report at the time he is watching television and reading a book. His chart was reviewed he is well known to the Cardiology Department at [facility] and has a well-established diagnosis of a nonischemic cardiomyopathy. The notes that her the chart indicate he has had 3 or 4 cardiac catheterizations done down there all demonstrating no evidence of coronary artery disease. These procedures were apparently done over a number of years. He does have a reduced left ventricular ejection fraction in the vicinity of 30-35% that appears to be chronic. An echocardiogram was done during this hospitalization which was given to Dr. Grimaldo for interpretation which looks essentially unchanged. He is not reporting any symptoms of chest pain. He states he came to this hospital couple of days ago because of increasing lower extremity edema which was becoming more problematic over the last 2-3 weeks. He given different history to Dr. Hurst who indicates that the edema began just a couple of days. He states he came to this hospital because he decided to come in in the middle of the night and he knew that [facility] was in a dangerous neighborhood any did not want his to have to drive him there and then drive home alone in the car. He also has a history of paroxysmal atrial fibrillation and has an implanted [employer] pacemaker/ICD which was most recently placed/upgraded in July of 2018. The patient's medical regimen was fairly standard other than he was very strangely both taking losartan and lisinopril. He also is not taking spironolactone. He remembers being on that drug a number of years ago but can't remember why it was stopped. He does have stage 3 chronic kidney disease. I would presume he might have become hyperkalemic on that agent obviously we do not have any of those records. His diuretic regimen consists of furosemide according to the chart 20 mg daily although he states that he only takes the drug sporadically when he notices some edema his physicians at the [facility] have told to take it in sort of an as needed fashion. Review of Systems Constitutional: Constitutional: Reports fatigue Eyes: Eyes: Reports no additional eye complaints ENT: Reports system reviewed and no additional complaints, except as documented Cardiovascular: Cardiovascular: Reports as per HPI Respiratory: Respiratory: Reports dyspnea Gastrointestinal: Gastrointestinal: Reports no additional gastrointestinal complaints Genitourinary: Ge
[2019-09-25 16:27] LABS: Hemoglobin A1C 10.8 % (<5.7)
[2019-09-25 18:03] LABS: Glucose Point of Care 159 (65-105)
[2019-09-25 20:58] LABS: Creatinine Urine 25.7 mg/dL; Total Protein Urine Random 103 mg/dL
[2019-09-25 21:19] LABS: Sodium Urine Random 81 meq/L
[2019-09-25 21:34] LABS: Glucose Point of Care 136 (65-105)
[2019-09-26] VITALS (18 sets, daily range): BP systolic 138–178; BP diastolic 78–115; PULSE 58–75; RESP 14–24; TEMP 36.3–36.4; O2SAT 86–100
[2019-09-26 05:08] LABS: Hematocrit 30.8 % (42.0-52.0); Hemoglobin 9.4 g/dL (14.0-18.0); Mean Corpuscular HGB Conc 30.5 g/dl (32-36); Mean Corpuscular Hemoglobin 25.3 pg (26-34); Mean Platelet Volume 10.5 fl (7.4-10.4); Platelet Count Result 183 k/mm3 (150-375); Red Blood Count 3.71 M/mm3 (4.6-6.20); Red Cell Distribution Width 15.2 % (11.5-14.5); White Blood Count 7.5 K/mm3 (4.5-10.0)
[2019-09-26 05:38] LABS: Albumin Level 3.1 g/dL (3.5-5.1); Blood Urea Nitrogen 48 mg/dL (9-20); Calcium 8.3 mg/dL (8.4-10.2); Carbon Dioxide 33 mmol/L (22-30); Chloride 100 mmol/L (98-107); Estimated CRCL calculation 23 ml/min; Estimated Glomerular Filt Rate 24; Glucose 213 mg/dL (75-110); Phosphorus 4.6 mg/dL (2.5-4.5); Potassium 3.5 mmol/L (3.4-5.0); Sodium 137 mmol/L (137-145)
--- NOTE | 2019-09-26 08:12 | PM.PNCARD ---
Progress Note: A&P Assessment and Plan (1) Acute on chronic systolic and diastolic heart failure, NYHA class 1: Code(s): I50.43 - Acute on chronic combined systolic (congestive) and diastolic (congestive) heart failure Status: Acute Assessment and Plan: Improved. Currently tx'd w/ carvedilol, losartan, furosemide. Pt desires discharge today. Spoke w/ Keena Brand, agree w/ extra IV Lasix, prob discharge w/ furosemide 20 mg qd, mild fluid restriction of 1.5-2 quarts/day, no K+ since he has CKD and on losartan. Needs FU w/ DR. Guzman and [facility] soon and consider adding Isosorbide/hydralazine for HTN and CHF after seeing how he does w/ losartan 100 mg qd. Check O2 sat needs w/ ambulation. (2) Essential (primary) hypertension: Code(s): I10 - Essential (primary) hypertension Status: Chronic Assessment and Plan: BP still high. (3) Chronic kidney disease, stage 3: Code(s): N18.3 - Chronic kidney disease, stage 3 (moderate) Status: Acute Assessment and Plan: STable after diuresis. Subjective Date/time seen: 09/26/19 08:12 Interval history: Follow up of 74-year-old man with long established diagnosis of nonischemic cardiomyopathy in the hospital with biventricular failure and volume overload, EF 30%. DATE OF SERVICE: 09/26/2019 Pt says he seriously plans on going home today. Up in room, to BR, w/o much trouble. [place] better. Weight down 1.1 kg since admission. SBP still high, 150-170. O2 sat 99% on 2Liters, not on home O2. (Apparently desaturated last night to 88%, though not documented.) Review of Systems Constitutional: Constitutional: Denies weakness ENT: Denies nasal congestion Cardiovascular: Cardiovascular: Denies chest pain, Reports pedal edema (Much better) and Denies lightheadedness Respiratory: Respiratory: Denies cough and Reports dyspnea on exertion (chronic mild CHILDRESS) Gastrointestinal: Gastrointestinal: Denies abdominal pain Genitourinary: Genitourinary: Denies dysuria Integumentary/Breasts: Skin/Breast: Denies rash Exam Const: General: comfortable and no acute distress HENMT: Mouth: Yes moist mucous membranes Eyes: EOM: EOMs intact bilaterally Neck: Neck: supple and no JVD Resp: Auscultation: no rales and diminished lung sounds Cardio: Rate: regular rate Rhythm: regular rhythm Heart sounds: Murmur heart sound present GI: Inspection: non-distended Neuro: Cognition (Neuro): normal cognition Speech: normal speech Extrem: Right lower extremity: no edema Left lower extremity: edema (trace pretibial) Psych: Mental Status: mental status grossly normal Affect: normal affect Objective Data Vital Signs Vital Signs: Vital Signs - 24 hr 09/25/19 09:43 09/25/19 10:00 09/25/19 12:00 Temperature 96.7 F L Pulse Rate 60 65 60 Respiratory Rate 20 Blood Pressure 152/77 H Pulse Oximetry 93 09/25/19 14:00 09/25/19 16:00 09/25/19 17:32 Temperature 97.4 F L Pulse Rate 60 60 60 Respiratory Rate 20 Blood Pressure 174/83 H Pulse Oximetry 93 09/25/19 18:00 09/25/19 20:00 09/25/19 20:16 Temperature 97.3 F L Pulse Rate 60 60 60 Respiratory Rate 18 Blood Pressure 185/82 H Pulse Oximetry 94 09/25/19 22:00 09/26/19 00:00 09/26/19 02:00 Temperature 97.5 F L Pulse Rate 60 60 60 Respiratory Rate 18 Blood Pressure 158/89 H Pulse Oximetry 100 09/26/19 03:47 09/26/19 04:00 09/26/19 05:30 Temperature 97.5 F L Pulse Rate 58 L 63 62 Respiratory Rate 18 18 Blood Pressure 178/78 H Pulse Oximetry 99 99 Intake/Output Intake/Output: Intake & Output 09/23/19 09/24/19 09/25/19 09/26/19 23:59 23:59 23:59 23:59 Intake Total 2282 840 700 Output Total 505 9985 820 1050 Balance -325 -193 20 -350 Meds/Results Medications: Active Medications Generic Name Dose Route Start Last A
--- NOTE | 2019-09-26 08:52 | PM.DS ---
DS: Diagnosis Admitting Diagnosis Admitting Diagnosis: Acute on chronic systolic (congestive) heart failure Discharge Diagnosis (1) CHF exacerbation: Qualifiers: Heart failure type: systolic Qualified Code(s): I50.23 - Acute on chronic systolic (congestive) heart failure Code(s): I50.9 - Heart failure, unspecified Status: Acute (2) Chronic kidney disease, stage 3: Code(s): N18.3 - Chronic kidney disease, stage 3 (moderate) Status: Acute (3) Type 2 diabetes mellitus with hyperglycemia: Qualifiers: Diabetes mellitus longterm insulin use: with roasterman use Qualified Code(s): E11.65 - Type 2 diabetes mellitus with hyperglycemia; Z79.4 - middle or intermediate school principal (current) use of insulin Code(s): E11.65 - Type 2 diabetes mellitus with hyperglycemia Status: Chronic (4) Hypokalemia: Code(s): E87.6 - Hypokalemia Status: Acute (5) Essential (primary) hypertension: Code(s): I10 - Essential (primary) hypertension Status: Chronic (6) Major depressive disorder, single episode, unspecified: Code(s): F32.9 - Major depressive disorder, single episode, unspecified Status: Chronic (7) Atrial fibrillation/flutter: Code(s): I48.91 - Unspecified atrial fibrillation; I48.92 - Unspecified atrial flutter Status: Chronic (8) Chronic back pain: Code(s): M54.9 - Dorsalgia, unspecified; G89.29 - Other chronic pain Status: Chronic (9) Coronary artery disease: Code(s): I25.10 - Atherosclerotic heart disease of [place] coronary artery without angina pectoris Status: Chronic (10) GERD without esophagitis: Code(s): K21.9 - Gastro-esophageal reflux disease without esophagitis Status: Chronic (11) Left upper extremity swelling: Code(s): M79.89 - Other specified soft tissue disorders Status: Acute DS: Summary Hospital Course Reason for hospitalization: Mr. Mason is a 74 y.o male with PMH significant for nonischemic cardiomyopathy with systolic and diastolic CHF, atrial fibrillation on anticoagulation, T2DM, CKD stage III, and HLD who presented to the ED via EMS with c/o shortness of breath and increased edema. He reports that he did not take lasix for approximately 1 month due to worsening renal function. He resumed his lasix 4 days prior to presentation to the ED. He was treated for cough with 2 abx regimens and that has resolved. He reports approx 15-20 lb akanksha gain with 7lb wt gain in the past 7 days. He complained of swelling in the lower legs initially which progressively worsened and then involved his LUE. Initial workup in the ED revealed WBC 6.9, Hb 9.7, Hct 31.6, D-dimer 1.43, potassium 3.3, Cr 2.7 and BUN 52, BNP 7390, and troponin 0.086 with flat trend. CXR revealed cardiomegaly with intersittial edema and small pleural effusions. EKG revealed paced rhythm. The pt was treated with IV lasix for acute on chronic CHF exacerbation. He was admitted to the hospitalist service for further evaluation and treatment of KASANDRA on CKD and acute on chronic CHF exacerbation. He responded very well to IV lasix with excellent urine output and resolution of his lower extremity edema as well as improvement in dyspnea. He experienced an episode of hypoglycemia so his insulin was held and resumed once appropriate with stable blood sugars. Venous dopplers of the bilateral lower extremities and left upper extremity revealed no DVT. His primary safety fire boss is Dr. Jeff at [facility]. Dr. Hurst, nephrology, and Dr. Bauer, cardiology were consulted. The pt was taking lisinopril and losartan ECONOMIC DEVELOPMENT COORDINATOR which may have contributed to his renal insufficiency. Lisinopril was discontinued and losartan was increased to 100mg. Amlodipine was discontinued due to edema. Dr. Hurst recommended follow-up outpatient with Dr. Guzman in 1 week to review serologies and immunofixation and follow-up on his chronic kidney disease. Cr from labs earlier this year at outside f
[2019-09-26 08:58] LABS: Glucose Point of Care 132 (65-105)
[2019-09-26] MEDS: buPROPion HCL 100 MG TABLET PO (09:14)
[2019-09-26] MEDS: POTASSIUM CHLORIDE 20 MEQ TABLET 40 MEQ PO (09:14)
[2019-09-26] MEDS: INDAPAMIDE 2.5 MG TABLET PO (09:15)
[2019-09-26] MEDS: AMIODARONE HCL 200 MG TABLET PO (09:15)
[2019-09-26] MEDS: ASPIRIN 81 MG CHEWABLE TABLET PO (09:15)
[2019-09-26] MEDS: PANTOPRAZOLE 40 MG TABLET PO (09:15)
[2019-09-26] MEDS: APIXABAN 5 MG TABLET PO (09:15)
[2019-09-26] MEDS: carvediloL 25 MG TABLET PO (09:15)
[2019-09-26] MEDS: GABAPENTIN 300 MG CAPSULE PO ×2 (09:15→13:24)
[2019-09-26] MEDS: FUROSEMIDE INJ 40 MG/4 ML VIAL IV PUSH (09:16)
[2019-09-26] MEDS: LOSARTAN POTASSIUM 100 MG TABLET PO (09:16)
--- NOTE | 2019-09-26 09:41 | PM.PNNEP ---
Progress Note: A&P Assessment and Plan (1) Chronic kidney disease, stage 3: Code(s): N18.3 - Chronic kidney disease, stage 3 (moderate) Status: Acute Assessment and Plan: The patient has chronic kidney disease. According to [facility] records his creatinine has been elevated for many years. The last time before this his creatinine was 1.4 in 2018. He had some labs done earlier this year which showed a creatinine of 2.7. There is probably not an acute component. Shows normal size kidneys but some echogenicity. Sed rate is 49 C4 are normal. Other serology is pending Immunofixation are pending Most likely he has chronic kidney disease due to diabetes and hypertension. He should follow-up with Dr. Guzman in the office after these tests have come back. (2) Left upper extremity swelling: Code(s): M79.89 - Other specified soft tissue disorders Status: Acute Assessment and Plan: The patient has global swelling. He has pulmonary hypertension and also systolic LV dysfunction. In addition he has [id number] of protein in the urine. So he has multiple reasons for swelling. Low-protein diet would probably help him. He should consume around 5 or 6 oz of chicken fish, beef, or pork Per day. (3) Coronary artery disease: Code(s): I25.10 - Atherosclerotic heart disease of [employer] [place] coronary artery without angina pectoris Status: Chronic Assessment and Plan: The patient has nonobstructive coronary disease. No chest pain. (4) Atrial fibrillation/flutter: Code(s): I48.91 - Unspecified atrial fibrillation; I48.92 - Unspecified atrial flutter Status: Chronic Assessment and Plan: The patient has this underlying a pacer rhythm on his EKG. (5) Essential (primary) hypertension: Code(s): I10 - Essential (primary) hypertension Status: Chronic Assessment and Plan: Blood pressure has been a little bit on the high side while he has been here. He just had his meds adjusted yesterday. He can have further adjustments as an outpatient. (6) Type 2 diabetes mellitus with hyperglycemia: Qualifiers: Diabetes mellitus long term care phlebotomist insulin use: with retirement use Qualified Code(s): E11.65 - Type 2 diabetes mellitus with hyperglycemia; Z79.4 - oysterman (current) use of insulin Code(s): E11.65 - Type 2 diabetes mellitus with hyperglycemia Status: Chronic Assessment and Plan: His sugars are not Very well controlled. Subjective Date/time seen: 09/26/19 09:41 Interval history: Patient is alert. He feels okay. His swelling is much better. No shortness of breath. Review of Systems Cardiovascular: Cardiovascular: Reports no additional cardiovascular complaints Respiratory: Respiratory: Reports no additional respiratory complaints Gastrointestinal: Gastrointestinal: Reports no additional gastrointestinal complaints Genitourinary: Genitourinary: Reports no additional male genitourinary complaints Exam Narrative: Exam Narrative: Well developed well-nourished in no acute distress Lungs clear Heart regular without rub Abdomen bowel sounds positive soft nontender Extremities no edema Skin no rash Objective Data Vital Signs Vital Signs: Vital Signs - 24 hr 09/25/19 09:43 09/25/19 10:00 09/25/19 12:00 Temperature 35.9 C L Pulse Rate 60 65 60 Respiratory Rate 20 Blood Pressure 152/77 H Pulse Oximetry 93 09/25/19 14:00 09/25/19 16:00 09/25/19 17:32 Temperature 36.3 C L Pulse Rate 60 60 60 Respiratory Rate 20 Blood Pressure 174/83 H Pulse Oximetry 93 09/25/19 18:00 09/25/19 20:00 09/25/19 20:16 Temperature 36.3 C L Pulse Rate 60 60 60 Respiratory Rate 18 Blood Pressure 185/82 H Pulse Oximetry 94 09/25/19 22:00 09/26/19 00:00 09/26/19 02:00 Temperature 36.4 C L Pulse Rate 60 60 60 Respiratory Rate 18 Blood Pressure 158/89 H Pulse Oximetry 100
[2019-09-26] MEDS: ALBUTEROL SULFATE (*SP) AEROSOL 1 PUFF 2 PUFF INHALATION (09:49)
--- NOTE | 2019-09-26 11:08 | HOMEO2EVAL ---
Home Oxygen Evaluation RC: Home Oxygen (O2) Evaluation Start: 09/26/19 09:11 Freq: ONCE Status: Active Protocol: RPE Activity Type Activity Date Activity User E-Sign Co-Sign Detail Recorded Client Recorded Date Recorded By Document 09/26/19 09:50 [place] [email or web address] 09/26/19 10:33 [facility] Document 09/26/19 09:52 [place] [email or web address] 09/26/19 10:33 [facility] Document 09/26/19 09:54 [place] [email or web address] 09/26/19 10:33 [facility] Document 09/26/19 09:56 [place] [email or web address] 09/26/19 10:33 [facility] Document 09/26/19 09:58 [place] [email or web address] 09/26/19 10:33 [facility] Document 09/26/19 10:00 [facility] [email or web address] 09/26/19 10:33 [facility] Document 09/26/19 10:03 [facility] [email or web address] 09/26/19 10:33 [facility] 09/26/19 09/26/19 09/26/19 09:50 09:52 09:54 Home O2 Evaluation Test Phase Resting Resting Resting Oxygen Delivery Room Air Nasal Cannula Nasal Cannula Oxygen Flow Rate (L/min) 1 2 Fraction of Inspired Oxygen (%) 21 Pulse Oximetry (90-100 %) 86 L 86 L 90 Pulse Rate (60-100 beats/min) 62 60 62 Activity Tolerance Good Good Good Rating of Perceived Dyspnea (PD) +1 Mild, Noticeable to the Participant but Not to an Observer Ambulation Distance (feet) Home Oxygen Evaluation Comments Treatment Charges O2 Evaluation 09/26/19 09/26/19 09/26/19 09:56 09:58 10:00 Home O2 Evaluation Test Phase Exercise Exercise Exercise Oxygen Delivery Nasal Cannula Nasal Cannula Nasal Cannula Oxygen Flow Rate (L/min) 2 2 2 Fraction of Inspired Oxygen (%) Pulse Oximetry (90-100 %) 91 92 92 Pulse Rate (60-100 beats/min) 65 70 75 Activity Tolerance Good Good Good Rating of Perceived Dyspnea (PD) +1 Mild, +2 Mild, Some +2 Mild, Some Noticeable to Difficulty, Difficulty, the Participant Noticeable to Noticeable to but Not to an the Observer the Observer Observer Ambulation Distance (feet) 15 20 30 Home Oxygen Evaluation Comments Treatment Charges 09/26/19 10:03 Home O2 Evaluation Test Phase Resting Oxygen Delivery Nasal Cannula Oxygen Flow Rate (L/min) 2 Fraction of Inspired Oxygen (%) Pulse Oximetry (90-100 %) 91 Pulse Rate (60-100 beats/min) 73 Activity Tolerance Good Rating of Perceived Dyspnea (PD) +1 Mild, Noticeable to the Participant but Not to an Observer Ambulation Distance (feet) Home Oxygen Evaluation Comments pt will require 2L with rest and activity Treatment Charges
[2019-09-26 12:30] LABS: Glucose Point of Care 168 (65-105)
--- NOTE | 2019-09-26 13:17 | PCRCNOTE ---
pt requires home O2 at 2L with rest and activity. [facility] [phone]
[2019-09-27 10:41] LABS: Complement Total CH50 >60 U/mL (31-60)
[2019-09-27 21:15] LABS: Kappa\\Lambda Light Chains 1.44 (0.26-1.65); Lambda Light Chain 61.2 mg/L (5.7-26.3)
== END 2019-09-26 15:49 | disposition home or self-care (01) | DRG 291 ==
LOC: ANHED 22:20 → ANHIMU 22:27
PROVIDERS: Internal Medicine Nephrology; Physician Assistant; Admitting Provider Internal Medicine; Emergency Provider Emergency Medicine; PCP Family Medicine; Visit Provider Hospitalist
DX: I13.0 Hypertensive heart and chronic kidney disease with heart failure and stage 1 through stage 4 chronic kidney disease, or unspecified chronic kidney disease (principal); I50.23 Acute on chronic systolic (congestive) heart failure; I48.92 Unspecified atrial flutter; E11.36 Type 2 diabetes mellitus with diabetic cataract; E11.319 Type 2 diabetes mellitus with unspecified diabetic retinopathy without macular edema; E11.22 Type 2 diabetes mellitus with diabetic chronic kidney disease; E11.40 Type 2 diabetes mellitus with diabetic neuropathy, unspecified; H26.9 Unspecified cataract; I48.91 Unspecified atrial fibrillation; E11.9 Type 2 diabetes mellitus without complications; Z86.718 Personal history of other venous thrombosis and embolism; M19.90 Unspecified osteoarthritis, unspecified site; N40.0 Benign prostatic hyperplasia without lower urinary tract symptoms; N18.3 Chronic kidney disease, stage 3 (moderate); I25.10 Atherosclerotic heart disease of native coronary artery without angina pectoris; K21.9 Gastro-esophageal reflux disease without esophagitis; E78.2 Mixed hyperlipidemia; Z95.810 Presence of automatic (implantable) cardiac defibrillator; Z86.73 Personal history of transient ischemic attack (TIA), and cerebral infarction without residual deficits; Z87.891 Personal history of nicotine dependence; E11.65 Type 2 diabetes mellitus with hyperglycemia; E87.6 Hypokalemia; I27.20 Pulmonary hypertension, unspecified; G89.29 Other chronic pain; M54.9 Dorsalgia, unspecified; I42.8 Other cardiomyopathies
CPT/HCPCS: 36415; 71045; 76770; 80048; 80053; 80061; 80069; 82550; 82570; 83036; 83735; 83880; 83883; 84132; 84156; 84300; 84484; 85025; 85027; 85380; 85610; 85652; 85730; 85999; 86038; 86160; 86162; 86334; 86335; 93005; 93306; 93970; 93971; 94618; 94640; 96372; 96374; 99285; A9270; J1650; J1815; J1940

== ENCOUNTER 2019-12-02 10:00 | Outpatient (RCR) | payer MEDICARE, SELFPAY ==
[2019-11-19 13:18] VITALS: BMI 23.1
== END 2020-02-08 07:51 | disposition home or self-care (01) ==
LOC: ANHWOC 10:00
PROVIDERS: PCP Family Medicine; Visit Provider Family Medicine
DX: S81.801D Unspecified open wound, right lower leg, subsequent encounter (principal)
CPT/HCPCS: 99211; 99212; G0463

== ENCOUNTER 2020-03-02 07:32 | Inpatient (IN) | payer MEDICARE, SELFPAY ==
[2020-03-02] VITALS (13 sets, daily range): BP systolic 104–164; BP diastolic 73–104; PULSE 60–88; RESP 17–28; TEMP 36.1–36.4; O2SAT 80–100; BMI 25.2
--- NOTE | ~2020-03-02 | US_ITS ---
EXAMINATION: US biopsy renal DATE: 03/07/2020 11:31 INDICATION: Progressive decline in kidney function. Proteinuria. TECHNIQUE: The procedure including the risks, benefits, and alternatives was discussed with the patie nt. Risks discussed included bleeding and infection. The patient understood the risks and agreed to p roceed. A timeout was performed to verify the patient's name, date of , and procedure to be p erformed. The skin overlying the left kidney was prepped and draped in usual sterile fashion. Anest hetic was administered with 1% lidocaine subcutaneously. An 18 gauge core biopsy needle was then use d to obtain 4 core biopsy specimens under continuous sonographic guidance. The patient refused additi onal sampling. The entry site was cleaned and dressed. There were no immediate complications. FINDINGS: Ultrasound images demonstrate the needle in the kidney. IMPRESSION: 1. Ultrasound-guided random left kidney core needle biopsy. Reviewed, dictated and finalized at location A.
--- NOTE | ~2020-03-02 | CT_ITS ---
EXAMINATION: CT brain wo con DATE: 03/02/2020 11:15 INDICATION: Altered mental status. Confusion. TECHNIQUE: Computed tomography (CT) of the head was performed without intravenous contrast. The dose- length product was 681.00 mGy-cm. The mA was adjusted according to patient size. Iterative reconstruction technique was employed. COMPARISON: CT dated 04/21/2015 FINDINGS: Chronic bilateral lacunar infarctions. Prominent perivascular space on the right. Mild gene ralized atrophy. There are scattered mild periventricular and subcortical white matter changes, most likely related to small vessel ischemic disease (microangiopathy). Basilar cistern is patent. No acut e intracranial hemorrhage, infarction, mass or mass effect. Mild mucosal thickening of the left maxil april and ethmoid sinuses. Mastoids are pneumatized. No depressed skull fractures. IMPRESSION: 1. No acute intracranial abnormality. 2: Chronic bilateral lacunar infarctions. 3: Chronic age-related findings. Reviewed, dictated and finalized at location B.
--- NOTE | ~2020-03-02 | XR_ITS ---
XR chest 1V 03/02/2020 11:20 Indication: Pleural effusion. Dyspnea. Procedure: AP upright view of the chest Comparison: Comparison to multiple prior studies sequentially, with oldest reviewed study dated 01/03. Findings: Cardiomegaly. Small pleural effusions, left greater than right. Left basilar airspace disea se. Pacemaker leads are stable. Chronic apical pleural thickening/scarring. Impression: 1: Left basilar airspace disease may represent atelectasis, edema and/or pneumonia. 2: Bilateral pleural effusions, left greater than right. Reviewed, dictated and finalized at location B. Impression: 1: Left basilar airspace disease may represent atelectasis, edema and/or pneumo cecilio. 2: Bilateral pleural effusions, left greater than right.
--- NOTE | ~2020-03-02 | US_ITS ---
US renal BI 03/03/2020 09:28 Procedure: Realtime transabdominal ultrasound of the kidneys and bladder. Indication: Elevated creatinine Comparison: 09/25/2019 Findings: Renal echotexture is normal bilaterally without hydronephrosis, contour deforming mass or r enal calculus. The right kidney measures 9.8 cm and left kidney measures 9.9 cm. Bladder wall thicken ing measuring 6.6 mm. Prostate gland is enlarged. Impression: 1: Bladder wall thickening which may be due to outlet obstruction from enlarged prostate gland and/or cystitis. Reviewed, dictated and finalized at location B. Impression: 1: Bladder wall thickening which may be due to outlet obstruction from enlarged prostate gland and/or cystitis.
--- NOTE | ~2020-03-02 | XR_ITS ---
EXAMINATION: XR chest 1V portable EXAM DATE: 03/04/2020 05:24 INDICATION: Shortness of breath. TECHNIQUE: Portable AP frontal chest x-ray was obtained. Comparison is made to prior examination from 03/02/2020. FINDINGS: Multi lead pacemaker/AICD device. Again there is cardiomegaly and pulmonary vascular conges tion. There is indistinct reticulation with a bibasal predominance which may indicate pulmonary edema . More focal retrocardiac atelectasis or infection. Small to moderate left, small right pleural effus ions. There is no pneumothorax suspected. There are bony degenerative changes. There is aortic arteri osclerosis. IMPRESSION: 1. Persistent retrocardiac segmental atelectasis or infection. 2. Findings changes consistent with mild CHF exacerbation unchanged. Reviewed, dictated and finalized at location A.
--- NOTE | ~2020-03-02 | CT_ITS ---
EXAMINATION: CT abdomen pelvis wo con DATE: 03/02/2020 09:15 INDICATION: Abdomen pain. UTI. Difficulty urinating. TECHNIQUE: Computed tomography (CT) of the abdomen and pelvis was performed without intravenous contr ast. The dose-length product was 543.47 mGy-cm. Automated exposure control and iterative reconstructi on technique were employed. COMPARISON: CT dated 03/26/2018 FINDINGS: There are bilateral pleural effusions. There is moderate pericardial effusion. There is asc ites. There is diffuse subcutaneous edema. This constellation of findings is consistent with anasarca . Dependent atelectasis. Mild peribronchial thickening. Cardiomegaly. There is atherosclerosis of the aorta. Enlarged prostate gland. Bladder wall thickening. Moderate ascites. There are cholecystectomy clips. The liver, spleen, pancreas, adrenal glands and kidneys and are unremarkable. There is mild diffuse m esenteric edema. Nonobstructive bowel gas pattern. There is a chronic burst fracture of L1 with verte broplasty change. Mild-moderate lumbar spondylosis. No acute osseous abnormality. IMPRESSION: 1. Anasarca characterized by bilateral pleural effusions, pericardial effusion, ascites and subcutane ous edema. Reviewed, dictated and finalized at location B. IMPRESSION: 1. Anasarca characterized by bilateral pleural effusions, pericardial effusion, ascites and subcutaneous edema.
--- NOTE | 2020-03-02 07:46 | ED.GENADULT ---
HPI - General Adult General Chief complaint: Urogenital-Male Stated complaint: ABD SWELLING Source: RN notes reviewed History of Present Illness HPI narrative: Patient presents emergency department from home via EMS for painful urination. Patient states he is currently being treated for UTI and is on amoxicillin start by his PCP. Patient states over the past 2 days he has been having increasing difficulty with urinating as well as increased pain with urination. He denies having fevers or chills shortness of breath chest pain nausea vomiting or any other symptoms. He states at times he does have some pain in the suprapubic region with urinating. Denies any other symptoms at this time Related Data Home Medications Medication Instructions Recorded Confirmed amiodarone 200 mg tablet 200 mg PO DAILY tablet 05/21/19 12/31/19 carvedilol 25 mg tablet 25 mg PO Q12H 05/21/19 12/31/19 nitroglycerin 0.4 mg sublingual 0.4 mg SUBLINGUAL Q5M PRN 05/21/19 12/31/19 tablet Eliquis 5 mg PO BID 09/23/19 12/31/19 gabapentin 300 mg PO TID 09/23/19 12/31/19 sacubitril-valsartan [Entresto] 1 tablet PO BID 11/19/19 12/31/19 amoxicillin-pot clavulanate tablet 03/02/20 Allergies Allergy/AdvReac Type Severity Reaction Status Date / Time rofecoxib Allergy Intermediate Itching Verified 03/02/20 07:39 clopidogrel Allergy Mild Itching Verified 03/02/20 07:39 acetaminophen [From [place]] AdvReac Intermediate BREATHING Verified 03/02/20 07:39 PROBLEMS hydrocodone [From [place]] AdvReac Intermediate BREATHING Verified 03/02/20 07:39 PROBLEMS Review of Systems Review of Systems: Narrative: Gen.: Denies fevers or chills ENT: Denies congestion Respiratory: Denies shortness of breath or cough CV: Denies chest pain or palpitations GI: Reports suprapubic pain with urination, denies nausea, emesis or diarrhea see HPI Musculoskeletal: Denies back pain or muscle pain Neuro: Denies numbness, tingling, weakness or focal weakness Skin: Denies rash Except as documented, all other systems reviewed and negative PMFSH Past Medical History Medical History Arthritis Atrial fibrillation/flutter Managed by Dr. Jeff at [facility] on amiodarone and Eliquis since March 2018, with discussion of Watchman procedure April 2019 due to a concern for falls BPH (benign prostatic hyperplasia) Cataract of left eye Chronic back pain Chronic kidney disease, stage 3 Dr. Guzman Coronary artery disease Nonobstructive Diabetic nephropathy Diabetic neuropathy DVT of left axillary vein, acute September 2018 GERD without esophagitis Hypertensive retinopathy of both eyes Mild pulmonary hypertension Mixed hyperlipidemia Non-proliferative diabetic retinopathy, both eyes Severe in the right eye mild in the left Systolic congestive heart failure Echocardiogram 07/17/2018 normal left ventricular size. Moderately reduced global left ventricular systolic function with akinetic inferior basal wall, ejection fraction 35% normal right ventricular size and systolic function, pacemaker seen right atrium/ventricle, severe concentric left ventricular hypertrophy, speckled appearance of myocardium suggestive of infiltrative process, mild aortic regurgitation. Elevated left ventricular and diastolic pressure, right ventricular systolic pressure of 44 consistent with mild pulmonary hypertension TIA (transient ischemic attack) Social History Social History Smoking packs per day: 3 Smoking cigarettes per day: 60.0 Years smoked: 50 Smoking pack-years: 150.00 Smoking status: Former smoker Second hand tobacco smoke exposure: No Smoking end date: 06/17/14 Alcohol intake: former Substance use: never Additional living arrangements comments: He lives with his and 16-year-old son. His oldest son is in his late 40s and has cerebral palsy. His son who would of been about
[2020-03-02 08:10] LABS: Add Urine Microscopic? YES; Appearance Urine Cloudy (Clear); Bacteria Urine 1+ /hpf; Bilirubin Urine Negative (Negative); Blood Urine 3+ (Negative); Color Urine Yellow (Yellow); Glucose Urine UA 2+ mg/dL (Negative); Ketones Urine Negative (Negative); Leukocyte Esterase Ur Negative LEU/UL (Negative); Nitrate Urine Negative (Negative); Protein Urine 3+ mg/dL (Negative); RBC Urine >75 /hpf (0-2); Specific Grav Ur 1.015 (1.001-1.035); Transitional Epi Cells Urine Rare /hpf (None Seen)
[2020-03-02 08:33] LABS: Basophils Percent Auto 0.8 % (0.2-1.2); Eosinophils Percent Auto 0.4 % (0-4.4); Hematocrit 27.1 % (42.0-52.0); Hemoglobin 8.5 g/dL (14.0-18.0); Immature Granulocyte Absolute 0.01 K/mm3 (0.00-0.031); Immature Granulocyte Percent A 0.2 % (0-0.5); Lymphocytes Absolute Auto 0.67 K/mm3 (0.9-3.2); Lymphocytes Percent Auto 13.3 % (18.3-44.2); Mean Corpuscular HGB Conc 31.4 g/dl (32-36); Mean Corpuscular Hemoglobin 24.9 pg (26-34); Mean Corpuscular Volume 79.5 fl (80-100); Monocytes Absolute Auto 0.3 K/mm3 (0.1-0.6); Monocytes Percent Auto 6.4 % (2.6-8.5); Neutrophils Percent Auto 78.9 % (45.5-73.1); Platelet Count Result 109 k/mm3 (150-375); Red Blood Count 3.41 M/mm3 (4.6-6.20); Red Cell Distribution Width 15.1 % (11.5-14.5)
[2020-03-02 08:45] LABS: Alanine Aminotransferase 30 U/L (4-50); Albumin Level 3.7 g/dL (3.5-5.1); Alkaline Phosphatase 161 U/L (38-126); Anion Gap 13 mmol/L (8-16); Aspartate Amino Transferase 38 U/L (17-59); Bilirubin,Total 0.6 mg/dL (0.2-1.3); Blood Urea Nitrogen 62 mg/dL (9-20); Calcium 7.9 mg/dL (8.4-10.2); Carbon Dioxide 21 mmol/L (22-30); Chloride 100 mmol/L (98-107); Estimated CRCL calculation 11 ml/min; Estimated Glomerular Filt Rate 10; Glucose 165 mg/dL (75-110); Potassium 3.7 mmol/L (3.4-5.0); Sodium 134 mmol/L (137-145)
[2020-03-02] MEDS: FUROSEMIDE INJ 100 MG/10 ML VIAL 80 MG IV PUSH (11:24)
--- NOTE | 2020-03-02 12:59 | ADMGEN ---
This patient, Arnol Mason, was admitted to 3 [facility] Surg Room 323-01. Patient/family oriented to hospital policies and general routines including ID bracelet, bed and alarms, visiting hours, pain management, procedures, bathroom and other care routines, personal items, smoking policy, room service/diet, and visiting hours. Valuables list has been completed. Information on how to activate the Rapid Response Team has been discussed. Patient/Family are encouraged to report perceived risks to care and to ask questions if they do not understand what they are told or what they should do.
--- NOTE | 2020-03-02 17:59 | PM.CNNEP ---
Assessment and Plan Assessment and plan (1) Acute on chronic renal insufficiency: Code(s): N28.9 - Disorder of kidney and ureter, unspecified; N18.9 - Chronic kidney disease, unspecified Status: Acute Assessment and Plan: the patient has chronic kidney disease. Most likely this is from diabetes and hypertension. The patient did go to see Dr. Guzman for evaluation of this however he never got any of the blood work Dr. Guzman asked to get. So will go ahead and do this now. he does have some blood in his urine. He also has proteinuria. Will go ahead and get serology, immunofixation, urine electrolytes and eosinophils, and a renal ultrasound. The patient could have acute kidney injury as well. But is hard to tell whether this is just chronic progression or actually acute disease. Will get urine electrolytes and eosinophils. Other etiologies might do some of this would be glomerulonephritis or infiltrative diseases such as myeloma. Renal biopsy might be an option. (2) Acute UTI: Code(s): N39.0 - Urinary tract infection, site not specified Status: Acute Assessment and Plan: The patient has Pyuria. Will get urine culture. (3) Anemia: Code(s): D64.9 - Anemia, unspecified Status: Acute Assessment and Plan: Hemoglobin is low. Will check iron levels a reticulocyte count and stool guaiacs. (4) Hyponatremia: Code(s): E87.1 - Hypo-osmolality and hyponatremia Status: Acute Assessment and Plan: Sodium level is mildly low. This is probably due to renal failure. Will keep an eye on this as we go. (5) Fluid overload, unspecified: Code(s): E87.70 - Fluid overload, unspecified Status: Acute Assessment and Plan: The patient received some Lasix today because of his volume overload. He does have lots of protein in the urine but he does not have a low albumin so nephrotic syndrome should not explain this. The patient has severe pulmonary hypertension which would explain the ascites, pleural effusions, and edema. He also has some left-sided heart failure as well with an EF of only 35-40%. He also has severe left ventricular hypertrophy and diastolic dysfunction which probably contributes as well. History of Present Illness Reason for Consult Consult date: 03/02/20 Chief Complaint Chief complaint: acute chronic renail insufficiency,uti,anasarca History of Present Illness Narrative: Arnol is a very pleasant 74-year-old gentleman who has chronic kidney disease followed by Dr. Guzman in the office. Unfortunately the patient has not seen Dr. Guzman since June of 2018. At that time his creatinine was 1.4. In September of this year his creatinine was about 2.6. His past history is also highlighted will for atrial fibrillation, BPH, coronary artery disease, congestive heart failure with an EF of 35, TIA, diabetes with retinopathy, hyperlipidemia, hypertension. Patient says he came into the hospital because of pain with urination. A few days ago he went to his PCP with the same complaint and was given antibiotics. However the pain has persisted so he came to the emergency room. In the emergency room he was evaluated and found to have anemia, a potassium which was normal a sodium of 134, calcium of 7.9, and a creatinine of 5.5. With x-ray evaluation is found to have volume overload. So the patient was admitted. Patient denies any bloody urine foamy urine kidney stones or bladder infection. He denies any nonsteroidal anti-inflammatory agents. He has been taking his medications at home. The antibiotic he is currently taking is TMP sulfa. He is not allergic to this. Has no skin rash. Review of Systems Constitutional: Constitutional: Reports no additional constitutional complaints Eyes: Eyes: Reports no additional eye complaints ENT: Reports system reviewed and no additional complaints, except as documented Cardiov
--- NOTE | 2020-03-02 20:08 | PM.IMHP ---
H&P: HPI History of Present Illness Date/Time: 03/02/20 20:08 Chief complaint: acute chronic renail insufficiency,uti,anasarca Narrative: Arnol Mason is a 74 year old male Who came to the emergency room from home for painful urination. The patient is currently being treated with Bactrim for UTI. However he has chronic renal failure stage 4 to 5. Over the last couple days has been more difficulty urinate. The patient was given Lasix in the emergency room states that he no longer has any difficulty urinating. I could not see any microbiology for his urine. The patient was last admitted here September this year for nonischemic cardiomyopathy with systolic and diastolic congestive heart failure. The patient responded well to diuretics at that time. His cnc maintenance technician Dr. jeff at [facility]. Dr. Hurst is his rodding machine tender and Dr. Bauer has seen him while he is here in the past. His last echo was performed here was systolic function estimated at 35-40% with a grade 3 diastolic dysfunction. The patient stated that he had increased swelling to his lower extremities over the last couple days as well. He denies any shortness of breath. Chest x-ray was read as left basilar airspace disease may represent atelectasis edema or pneumonia bilateral pleural effusions left greater than right. Dr. Hurst was consulted has seen the patient. Patient was given 80 mg of Lasix IV push in the emergency room as well as Rocephin for his UTI. Date of service 03/02/2020 Review of Systems Review of Systems: All systems reviewed & are unremarkable except as noted in HPI and below Constitutional: Constitutional: Reports as per HPI and Reports no additional constitutional complaints Eyes: Eyes: Reports as per HPI and Reports no additional eye complaints ENT: Reports system reviewed and no additional complaints, except as documented and Reports Normal hearing present Cardiovascular: Cardiovascular: Reports no additional cardiovascular complaints Respiratory: Respiratory: Reports no additional respiratory complaints and Reports no additional respiratory complaints Gastrointestinal: Gastrointestinal: Reports as per HPI and Reports no additional gastrointestinal complaints Musculoskeletal: Musculoskeletal: Reports no additional musculoskeletal complaints Integumentary/Breasts: Skin/Breast: Reports system reviewed and no additional complaints, except as docu and Reports as per HPI Neurologic: Reports system reviewed and no additional complaints, except as documented, Reports as per HPI and Reports Normal hearing present Psychiatric: Psychiatric: Reports no additional psychiatric complaints and Reports as per HPI Endocrine: Endocrine: Reports no additional endocrine complaints Hematologic/Lymphatic: Hematologic/Lymphatic: Reports no additional hematologic/lymphatic complaints Allergic/Immunologic: Allergic/Immunologic: Reports no additional allergic/immunologic complaints [facility] Past Medical History Medical History (Updated 03/02/20 @ 20:20 by Tete Lopez NP) Anemia Arthritis Atrial fibrillation/flutter Managed by Dr. Jeff at [facility] on amiodarone and Eliquis since March 2018, with discussion of Watchman procedure April 2019 due to a concern for falls BPH (benign prostatic hyperplasia) Cataract of left eye Chronic back pain Chronic kidney disease, stage 3 Dr. Guzman Coronary artery disease Nonobstructive Diabetic nephropathy Diabetic neuropathy DM2 (diabetes mellitus, type 2) DVT of left axillary vein, acute September 2018 Fluid overload, unspecified GERD without esophagitis Hypertensive retinopathy of both eyes Hyponatremia Mild pulmonary hypertension Mixed hyperlipidemia Non-proliferative diabetic retinopathy, both eyes Severe in the right eye mild in the left Systolic congestive heart failure 2. Left ventricular systolic function is moderately reduced, estimated at 35-40%. 3. There is severe concentric increased left ventricular wall thickne
[2020-03-02 20:18] LABS: Creatine Kinase 227 U/L (55-170); Lactate Dehydrogenase 528 U/L (313-618)
[2020-03-02 20:26] LABS: Complement C3 65 mg/dL (88-165)
[2020-03-02 20:31] LABS: Parathyroid Intact 282.2 pg/mL (7.5-53.5)
[2020-03-02 20:40] LABS: Erythrocyte Sedimentation Rate 24 mm/hr (0-20)
[2020-03-02 20:45] LABS: Reticulocyte Hemoglobin Conten 23.2 pg (28.2-35.7); Reticulocytes Absolute 0.05 B/L (32.2-175.7)
[2020-03-02 20:56] LABS: Iron 20 ug/dL (49-181)
[2020-03-02 21:06] LABS: Percent Iron Saturation 5 % (20-50)
[2020-03-02 21:57] LABS: Bilirubin,Total 0.5 mg/dL (0.2-1.3); Lactate Dehydrogenase 535 U/L (313-618)
[2020-03-02 22:04] LABS: Transferrin 267 mg/dL (206-381)
[2020-03-02 23:04] LABS: Folic Acid 8.2 ng/mL (2.76->20)
[2020-03-03 05:57] VITALS: BP 147/85; PULSE 60; RESP 18; TEMP 36.6; O2SAT 91
[2020-03-03 08:00] LABS: Glucose Point of Care 177 (65-105)
[2020-03-03] MEDS: TAMSULOSIN HCL 0.4 MG CAPSULE PO (09:42)
[2020-03-03] MEDS: carvediloL 25 MG TABLET PO ×2 (09:42→21:19)
[2020-03-03] MEDS: buPROPion HCL 100 MG TABLET PO (09:42)
[2020-03-03] MEDS: INDAPAMIDE 2.5 MG TABLET PO (09:43)
[2020-03-03] MEDS: GABAPENTIN 300 MG CAPSULE PO ×3 (09:43→17:16)
[2020-03-03] MEDS: APIXABAN 5 MG TABLET PO ×2 (09:43→17:16)
[2020-03-03] MEDS: AMIODARONE HCL 200 MG TABLET PO (09:43)
[2020-03-03] MEDS: PANTOPRAZOLE 40 MG TABLET PO (09:43)
[2020-03-03] MEDS: FUROSEMIDE INJ 40 MG/4 ML VIAL IV PUSH (09:44)
[2020-03-03 10:31] LABS: Albumin Level 3.7 g/dL (3.5-5.1); Anion Gap 11 mmol/L (8-16); Blood Urea Nitrogen 67 mg/dL (9-20); Calcium 8.4 mg/dL (8.4-10.2); Carbon Dioxide 24 mmol/L (22-30); Chloride 101 mmol/L (98-107); Estimated CRCL calculation 11 ml/min; Estimated Glomerular Filt Rate 10; Glucose 181 mg/dL (75-110); Phosphorus 5.5 mg/dL (2.5-4.5); Potassium 3.7 mmol/L (3.4-5.0); Sodium 136 mmol/L (137-145)
[2020-03-03 12:21] LABS: Glucose Point of Care 264 (65-105)
[2020-03-03 12:53] LABS: Total Protein Urine Random 57 mg/dL
[2020-03-03] MEDS: INSULIN ASPART (*BKC) 100 UNITS/ML SUB-Q (12:56)
[2020-03-03 12:57] LABS: Sodium Urine Random 110 meq/L
[2020-03-03 13:53] LABS: Creatinine Urine 29.9 mg/dL
[2020-03-03 14:00] VITALS: BP 150/81; PULSE 60; RESP 20; TEMP 36.2; O2SAT 97
--- NOTE | 2020-03-03 15:14 | PM.IMPN ---
Progress Note: A&P Assessment and Plan (1) Acute on chronic systolic and diastolic heart failure, NYHA class 1: Code(s): I50.43 - Acute on chronic combined systolic (congestive) and diastolic (congestive) heart failure Status: Acute Assessment and Plan: Echo from SEPTEMBER shows combined systolic and diastolic CHF 2. Left ventricular systolic function is moderately reduced, estimated at 35-40%. 3. There is severe concentric increased left ventricular wall thickness. 4. The left ventricular diastolic function is grade III diastolic dysfunction. Continue to diuresis with IV lasix reduce dosage as creat is over [address] Hurst aware. (2) Acute on chronic renal insufficiency: Code(s): N28.9 - Disorder of kidney and ureter, unspecified; N18.9 - Chronic kidney disease, unspecified Status: Acute Assessment and Plan: Dr. Hurst on board, creat is 5.7 Pt will likley need Renal biopsy (3) Anemia: Code(s): D64.9 - Anemia, unspecified Status: Acute Assessment and Plan: Appears to be less than his baseline. hb is 8.5 (4) Essential (primary) hypertension: Code(s): I10 - Essential (primary) hypertension Status: Chronic Assessment and Plan: Entresto is on hold for his CHF. (5) Type 2 diabetes mellitus with hyperglycemia: Qualifiers: Diabetes mellitus intermediate card tender insulin use: with shelter use Qualified Code(s): E11.65 - Type 2 diabetes mellitus with hyperglycemia; Z79.4 - nursing home (current) use of insulin Code(s): E11.65 - Type 2 diabetes mellitus with hyperglycemia Status: Chronic Assessment and Plan: Accu-Cheks AC and HS. SSI, hold home medications (6) Acute UTI: Code(s): N39.0 - Urinary tract infection, site not specified Status: Acute Assessment and Plan: pt is on iv Rocephin. await UC (7) Hyponatremia: Code(s): E87.1 - Hypo-osmolality and hyponatremia Status: Acute Assessment and Plan: sodium is 136. (8) BPH (benign prostatic hyperplasia): Code(s): N40.0 - Benign prostatic hyperplasia without lower urinary tract symptoms Status: Chronic Assessment and Plan: continue Flomax. (9) Atrial fibrillation/flutter: Code(s): I48.91 - Unspecified atrial fibrillation; I48.92 - Unspecified atrial flutter Status: Chronic Assessment and Plan: The patient is on Eliquis Coreg and amiodarone. (10) Major depressive disorder, single episode, unspecified: Code(s): F32.9 - Major depressive disorder, single episode, unspecified Status: Chronic Assessment and Plan: Continue Wellbutrin. Subjective Date/time seen: 03/03/20 15:14 Interval history: Isabella is a 74 year old male Who came to the emergency room from home for painful urination. The patient is currently being treated with Bactrim for UTI. Pt was admitted for chf excerbation. Pt is doing better mild SOB on exertion feels well when in bed resting. No other specific complaints. Review of Systems Review of Systems: All systems reviewed & are unremarkable except as noted in HPI and below Cardiovascular: Cardiovascular: Denies no additional cardiovascular complaints Respiratory: Respiratory: Reports dyspnea and Reports dyspnea on exertion Exam Const: Orientation/consciousness: oriented to person, oriented to place, oriented to time and patient oriented x3 Resp: Effort & Inspection: normal respiratory effort Auscultation: clear to auscultation bilaterally Percussion: percussion normal Cardio: Palpation: normal PMI Rate: regular rate Rhythm: regular rhythm Heart sounds: S1 normal heart sound present and S2 normal heart sound present Peripheral pulses: Peripheral pulses 2+ throughout GI: Inspection: normal to inspection Auscultation: normal bowel sounds Neuro: General: oriented to person, oriented to place, oriented to time and patient oriented x3 Gas Reverser
--- NOTE | 2020-03-03 17:31 | PM.PNNEP ---
Progress Note: A&P Assessment and Plan (1) Acute on chronic renal insufficiency: Code(s): N28.9 - Disorder of kidney and ureter, unspecified; N18.9 - Chronic kidney disease, unspecified Status: Acute Assessment and Plan: the patient has chronic kidney disease. Sed rate is 24. Complements are low. Await other serology. Immuno fix are pending his creatinine is no better. Consider renal biopsy. Platelet count is 109. He is on Eliquis. Will hold off on renal biopsy for now and see what other serology shows. Will hold Eliquis on Saturday for renal biopsy on Saturday (2) Acute UTI: Code(s): N39.0 - Urinary tract infection, site not specified Status: Acute Assessment and Plan: The patient has pyuria. Will get urine culture. this is pending (3) Anemia: Code(s): D64.9 - Anemia, unspecified Status: Acute Assessment and Plan: Hemoglobin is low. T sat is low. No stool for guaiac yet. will reorder Will give Venofer (4) Hyponatremia: Code(s): E87.1 - Hypo-osmolality and hyponatremia Status: Acute Assessment and Plan: Sodium level is mildly low. This is probably due to renal failure. (5) Fluid overload, unspecified: Code(s): E87.70 - Fluid overload, unspecified Status: Acute Assessment and Plan: he is resting comfortably in bed without oxygen. No shortness of breath The patient has severe pulmonary hypertension which would explain the ascites, pleural effusions, and edema. He also has some left-sided heart failure as well with an EF of only 35-40%. He also has severe left ventricular hypertrophy and diastolic dysfunction which probably contributes as well. Subjective Date/time seen: 03/03/20 17:31 Interval history: Patient feels better today. No shortness of breath. No chest pain. Review of Systems Cardiovascular: Cardiovascular: Reports no additional cardiovascular complaints Respiratory: Respiratory: Reports no additional respiratory complaints Gastrointestinal: Gastrointestinal: Reports no additional gastrointestinal complaints Genitourinary: Genitourinary: Reports no additional male genitourinary complaints Exam Narrative: Exam Narrative: Well developed well-nourished gentleman in no acute distress Skin is warm and dry without rash Head normocephalic atraumatic Lungs are symmetric and clear Heart regular rate rhythm no rub or gallop Abdomen bowel sounds positive soft nontender Extremities no edema Objective Data Vital Signs Vital Signs: Vital Signs - 24 hr 03/02/20 22:00 03/03/20 05:57 03/03/20 14:00 Temperature 36.4 C 36.6 C 36.2 C L Pulse Rate 60 60 60 Respiratory Rate 18 18 20 Blood Pressure 138/77 147/85 H 150/81 H Pulse Oximetry 94 91 97 Intake/Output Intake/Output: Intake & Output 02/29/20 03/01/20 03/02/20 03/03/20 23:59 23:59 23:59 23:59 Intake Total 290 810 Balance 290 810 Meds/Results Medications: Active Medications Generic Name Dose Route Start Last Admin Trade Name Freq PRN Reason Stop Dose Admin Amiodarone HCl 200 mg 03/03/20 09:00 03/03/20 09:43 Pacerone PO 200 mg DAILY ARTHUR Administration Apixaban 5 mg 03/03/20 09:00 03/03/20 17:16 Eliquis PO 5 mg BID ARTHUR Administration Bupropion HCl 100 mg 03/03/20 09:00 03/03/20 09:42 Wellbutrin PO 100 mg DAILY ARTHUR Administration Carvedilol 25 mg 03/03/20 09:00 03/03/20 09:42 Coreg PO 25 mg Q12HR ARTHUR Administration Dextrose 12.5 gm 03/02/20 20:36 Dextrose 50% Syringe IV PUSH PRN PRN Hypoglycemia Protocol Furosemide 20 mg 03/04/20 09:00 Lasix Inj IV PUSH DAILY ARTHUR Gabapentin 300 mg 03/03/20 09:00 03/03/20 17:16 Neurontin PO 300 mg TID ARTHUR Administration Glucagon 1 mg 03/02/20 20:36 Glucagon For Inj IM PRN PRN Hypoglycemia Protocol Glucose 15
[2020-03-03 17:38] LABS: Glucose Point of Care 189 (65-105)
[2020-03-03 20:42] LABS: Glucose Point of Care 189 (65-105)
[2020-03-03 21:19] VITALS: PULSE 62
[2020-03-03 22:00] VITALS: BP 134/71; PULSE 60; RESP 20; TEMP 36.6; O2SAT 95
[2020-03-04 06:00] VITALS: BP 145/75; PULSE 62; RESP 20; TEMP 36.6; O2SAT 92
[2020-03-04 06:49] LABS: Hematocrit 28.1 % (42.0-52.0); Hemoglobin 8.8 g/dL (14.0-18.0); Mean Corpuscular HGB Conc 31.3 g/dl (32-36); Mean Corpuscular Hemoglobin 25.1 pg (26-34); Mean Corpuscular Volume 80.1 fl (80-100); Mean Platelet Volume 11.3 fl (7.4-10.4); Platelet Count Result 147 k/mm3 (150-375); Red Blood Count 3.51 M/mm3 (4.6-6.20); Red Cell Distribution Width 14.9 % (11.5-14.5); White Blood Count 5.9 K/mm3 (4.5-10.0)
[2020-03-04 07:03] LABS: Albumin Level 3.4 g/dL (3.5-5.1); Anion Gap 9 mmol/L (8-16); Blood Urea Nitrogen 66 mg/dL (9-20); Calcium 8.4 mg/dL (8.4-10.2); Carbon Dioxide 25 mmol/L (22-30); Chloride 102 mmol/L (98-107); Estimated CRCL calculation 11 ml/min; Estimated Glomerular Filt Rate 10; Glucose 199 mg/dL (75-110); Phosphorus 5.1 mg/dL (2.5-4.5); Potassium 3.6 mmol/L (3.4-5.0); Sodium 136 mmol/L (137-145)
[2020-03-04 09:30] VITALS: BP 141/72; PULSE 60; RESP 18; O2SAT 96
[2020-03-04] MEDS: INSULIN ASPART (*BKC) 100 UNITS/ML SUB-Q ×2 (09:34→14:18)
[2020-03-04] MEDS: APIXABAN 5 MG TABLET PO ×2 (09:35→17:07)
[2020-03-04 09:36] VITALS: PULSE 60
[2020-03-04] MEDS: buPROPion HCL 100 MG TABLET PO (09:36)
[2020-03-04] MEDS: AMIODARONE HCL 200 MG TABLET PO (09:36)
[2020-03-04] MEDS: carvediloL 25 MG TABLET PO ×2 (09:36→21:25)
[2020-03-04] MEDS: FUROSEMIDE INJ 40 MG/4 ML VIAL 20 MG IV PUSH (09:36)
[2020-03-04] MEDS: GABAPENTIN 300 MG CAPSULE PO ×3 (09:36→17:07)
[2020-03-04] MEDS: TAMSULOSIN HCL 0.4 MG CAPSULE PO (09:37)
[2020-03-04] MEDS: INDAPAMIDE 2.5 MG TABLET PO (09:37)
[2020-03-04] MEDS: PANTOPRAZOLE 40 MG TABLET PO (09:37)
[2020-03-04] MEDS: IRON SUCROSE COMPLEX 200 MG in SODIUM CHLORIDE 0.9% IV 50 ML 120 MG IVPB (09:47)
[2020-03-04 10:11] LABS: Glucose Point of Care 219 (65-105)
--- NOTE | 2020-03-04 11:10 | PC.NURSE ---
Upon morning rounds this nurse assessed this patient and the patient stated being very unhappy with our hospital and stated, this place is a joke. I encouraged the patient to tell me why he was so upset and if there was anything that this nurse could change or answer for him to make his stay better for him and keep him informed with his current plan of care. The patient said he had no questions and he just wanted to leave. Patient was also refusing the bed alarm. The patient stated that if he needed to get up he would get up by himself without calling for staff and stated that he did not care about the bed alarm going off. This nurse explained the reason for the bed alarm and the fall risks associated with not calling for staff when needing to get up. The charge nurse was notified of the patient refusing the bed alarm. Kwame was notified by this nurse to let her know the patient was set on leaving today even though this nurse explained the current plan of care.
[2020-03-04 11:51] LABS: IFOB Positive Control Positive; Immunochemical Fecal Occult Bl Positive (N)
[2020-03-04 12:58] LABS: Glucose Point of Care 258 (65-105)
--- NOTE | 2020-03-04 12:59 | PM.IMPN ---
Progress Note: A&P Assessment and Plan (1) Acute on chronic systolic and diastolic heart failure, NYHA class 1: Code(s): I50.43 - Acute on chronic combined systolic (congestive) and diastolic (congestive) heart failure Status: Acute Assessment and Plan: echo from September 2019 shows EF 35-40% with increased LV wall thickness and grade 3 diastolic dysfunction. He denies shortness of breath. Lungs clear to auscultation. No lower extremity edema. Continue IV Lasix at reduced dose 20 mg IV given renal insufficiency continue heart healthy diet, monitor daily weights and I&O (2) Acute on chronic renal insufficiency: Code(s): N28.9 - Disorder of kidney and ureter, unspecified; N18.9 - Chronic kidney disease, unspecified Status: Acute Assessment and Plan: creatinine 5.5 at presentation. Baseline appears to be around 2.6. creatinine is 5.4 today. Etiology for this acute worsening is unclear at this time. Dr. Hurst is following and his recommendations are appreciated. Plan for renal biopsy on Saturday (3) Anemia: Code(s): D64.9 - Anemia, unspecified Status: Acute Assessment and Plan: Hemoglobin mildly decreased from baseline. 8.8 today. Iron panel reveals low iron saturation. Hemoccult is positive. No melena or hematochezia. VSS. Continue IV venofer Monitor H&H closely. Consider GI workup if further decline but I do not believe patient would consent to additional tests/procedures. (4) Essential (primary) hypertension: Code(s): I10 - Essential (primary) hypertension Status: Chronic Assessment and Plan: blood pressure review today and is stable in the 140 systolic. Continue diuretics. Entresto has been held. Monitor blood pressure daily (5) Type 2 diabetes mellitus with hyperglycemia: Qualifiers: Diabetes mellitus alf insulin use: with exterminator termite use Qualified Code(s): E11.65 - Type 2 diabetes mellitus with hyperglycemia; Z79.4 - [facility] (current) use of insulin Code(s): E11.65 - Type 2 diabetes mellitus with hyperglycemia Status: Chronic Assessment and Plan: Blood sugars have been elevated in the 200s. Most recent A1c 8.5. Continue Accu-Cheks ACHS, SSI, hypoglycemic protocol oral hypoglycemics are on hold Consider addition of long-acting insulin if blood sugars remain elevated. (6) Acute UTI: Code(s): N39.0 - Urinary tract infection, site not specified Status: Acute Assessment and Plan: UA was suspicious for UTI but urine culture negative. Patient is asymptomatic, afebrile, and no additional signs/symptoms of infection. Discontinue IV Rocephin. (7) Hyponatremia: Code(s): E87.1 - Hypo-osmolality and hyponatremia Status: Acute Assessment and Plan: Sodium is stable at 136. Monitor BMP daily (8) BPH (benign prostatic hyperplasia): Code(s): N40.0 - Benign prostatic hyperplasia without lower urinary tract symptoms Status: Chronic Assessment and Plan: Denies lower urinary tract symptoms. He has been urinating without difficulty. Urine output is adequate and no evidence of urinary retention. continue Flomax (9) Atrial fibrillation/flutter: Code(s): I48.91 - Unspecified atrial fibrillation; I48.92 - Unspecified atrial flutter Status: Chronic Assessment and Plan: Rate is controlled. Continue Eliquis, carvedilol, and amiodarone Eliquis will be held tonight after he receives this evening's dose in preparation for renal biopsy per nephrology recommendations (10) Major depressive disorder, single episode, unspecified: Code(s): F32.9 - Major depressive disorder, single episode, unspecified Status: Chronic Assessment and Plan: Patient is irritable today but denies feeling down, depressed, or hopeless. Continue Wellbutrin Subjective Date/t
[2020-03-04 14:00] VITALS: BP 137/71; PULSE 60; RESP 18; TEMP 36.3; O2SAT 95
--- NOTE | 2020-03-04 16:28 | PM.PNNEP ---
Progress Note: A&P Assessment and Plan (1) Acute on chronic renal insufficiency: Code(s): N28.9 - Disorder of kidney and ureter, unspecified; N18.9 - Chronic kidney disease, unspecified Status: Acute Assessment and Plan: the patient has chronic kidney disease. Sed rate is 24. Complements are low. Await other serology. Immuno fix are pending his creatinine is slightly better. Platelet count is 109. He is on Eliquis. will hold eliquis after this evening's dose and get bx on saturday. He seems to be upset that he has to stay. If he goes home he will probably deteriorate and end up back in the hospital. the only chance we have that he may not need dialysis is to see if he has a treatable condition. holding eliquis risks embolus due to afib. we will only hold it for a couple of days. biopsy risk includes bleeding and paiin long conversationwith the patient about staying so we can figure out what is going on (2) Acute UTI: Code(s): N39.0 - Urinary tract infection, site not specified Status: Acute Assessment and Plan: culture negative (3) Anemia: Code(s): D64.9 - Anemia, unspecified Status: Acute Assessment and Plan: Hemoglobin is low. T sat is low. hemoccult is positive. Will give Venofer consider GI? (4) Hyponatremia: Code(s): E87.1 - Hypo-osmolality and hyponatremia Status: Acute Assessment and Plan: Sodium level is mildly low. This is probably due to renal failure. (5) Fluid overload, unspecified: Code(s): E87.70 - Fluid overload, unspecified Status: Acute Assessment and Plan: he is resting comfortably in bed without oxygen. No shortness of breath The patient has severe pulmonary hypertension which would explain the ascites, pleural effusions, and edema. He also has some left-sided heart failure as well with an EF of only 35-40%. He also has severe left ventricular hypertrophy and diastolic dysfunction which probably contributes as well. Subjective Date/time seen: 03/04/20 16:28 Interval history: Patient feels better today. No shortness of breath. No chest pain. upset that he can't go home yet. Review of Systems Cardiovascular: Cardiovascular: Reports no additional cardiovascular complaints Respiratory: Respiratory: Reports no additional respiratory complaints Gastrointestinal: Gastrointestinal: Reports no additional gastrointestinal complaints Genitourinary: Genitourinary: Reports no additional male genitourinary complaints Exam Narrative: Exam Narrative: Well developed well-nourished gentleman in no acute distress Skin is warm and dry without rash Head normocephalic atraumatic Lungs are symmetric and clear to ausc Heart regular rate rhythm no rub or gallop Abdomen bowel sounds positive soft nontender Extremities no edema or cyanosis Objective Data Vital Signs Vital Signs: Vital Signs - 24 hr 03/03/20 21:19 03/03/20 22:00 03/04/20 06:00 Temperature 36.6 C 36.6 C Pulse Rate 62 60 62 Respiratory Rate 20 20 Blood Pressure 134/71 145/75 H Pulse Oximetry 95 92 03/04/20 09:30 03/04/20 09:36 Temperature Pulse Rate 60 60 Respiratory Rate 18 Blood Pressure 141/72 H Pulse Oximetry 96 Intake/Output Intake/Output: Intake & Output 03/01/20 03/02/20 03/03/20 03/04/20 23:59 23:59 23:59 23:59 Intake Total 290 1260 780 Output Total 700 950 Balance 290 560 -170 Meds/Results Medications: Active Medications Generic Name Dose Route Start Last Admin Trade Name Freq PRN Reason Stop Dose Admin Amiodarone HCl 200 mg 03/03/20 09:00 03/04/20 09:36 Pacerone PO 200 mg DAILY ARTHUR Administration Apixaban 5 mg 03/03/20 09:00 03/04/20 09:35 Eliquis PO 5 mg BID ARTHUR Administration Bupropion HCl 100 mg 03/03/20 09:00 03/04/20 09:36 Wellbutrin PO 100 mg DAILY ARTHUR Administration C
[2020-03-04 17:37] LABS: Glucose Point of Care 196 (65-105)
[2020-03-04 21:25] VITALS: PULSE 72
[2020-03-04 22:00] VITALS: BP 141/78; PULSE 60; RESP 20; TEMP 36.6; O2SAT 97
[2020-03-04 22:00] LABS: Glucose Point of Care 197 (65-105)
[2020-03-05 06:00] VITALS: BP 139/85; PULSE 63; RESP 20; TEMP 36.7; O2SAT 94
[2020-03-05 06:23] LABS: Basophils Absolute Auto 0.1 K/mm3 (0.0-0.1); Basophils Percent Auto 0.8 % (0.2-1.2); Eosinophils Absolute Auto 0.1 K/mm3 (0-0.3); Eosinophils Percent Auto 1.8 % (0-4.4); Hematocrit 26.4 % (42.0-52.0); Immature Granulocyte Absolute 0.02 K/mm3 (0.00-0.031); Immature Granulocyte Percent A 0.3 % (0-0.5); Lymphocytes Absolute Auto 0.76 K/mm3 (0.9-3.2); Lymphocytes Percent Auto 12.6 % (18.3-44.2); Mean Corpuscular HGB Conc 30.3 g/dl (32-36); Mean Corpuscular Hemoglobin 24.5 pg (26-34); Mean Corpuscular Volume 80.7 fl (80-100); Monocytes Absolute Auto 0.4 K/mm3 (0.1-0.6); Neutrophils Absolute Auto 4.7 K/mm3 (1.3-6.7); Neutrophils Percent Auto 77.5 % (45.5-73.1); Platelet Count Result 128 k/mm3 (150-375); Red Blood Count 3.27 M/mm3 (4.6-6.20); Red Cell Distribution Width 14.8 % (11.5-14.5)
[2020-03-05 06:42] LABS: Alanine Aminotransferase 25 U/L (4-50); Albumin Level 3.3 g/dL (3.5-5.1); Alkaline Phosphatase 132 U/L (38-126); Anion Gap 8 mmol/L (8-16); Aspartate Amino Transferase 24 U/L (17-59); Bilirubin,Total 0.5 mg/dL (0.2-1.3); Blood Urea Nitrogen 64 mg/dL (9-20); Calcium 8.3 mg/dL (8.4-10.2); Carbon Dioxide 25 mmol/L (22-30); Chloride 103 mmol/L (98-107); Estimated CRCL calculation 12 ml/min; Estimated Glomerular Filt Rate 11; Glucose 242 mg/dL (75-110); Potassium 3.7 mmol/L (3.4-5.0); Sodium 136 mmol/L (137-145)
--- NOTE | 2020-03-05 07:59 | PC.NURSE ---
Upon getting report from the day nurse, I was told that the patient is refusing the bed alarm and has been cooperative with calling for staff assistance when needing to get up. Charge RNs aware of the situation. I sat down and reiterated with the patient the safety protocols of our hospital and he agreed to call when needing to get up. Patient is A&Ox3 and cooperative with the plan of care for this evening. RN walked patient to the bathroom when he called and he was steady on his feet. Will continue with current safety plan.
[2020-03-05 08:00] VITALS: PULSE 60; RESP 20; O2SAT 94
[2020-03-05 08:52] VITALS: PULSE 60
[2020-03-05] MEDS: carvediloL 25 MG TABLET PO ×2 (08:52→20:36)
[2020-03-05] MEDS: AMIODARONE HCL 200 MG TABLET PO (08:52)
[2020-03-05] MEDS: buPROPion HCL 100 MG TABLET PO (08:52)
[2020-03-05] MEDS: TAMSULOSIN HCL 0.4 MG CAPSULE PO (08:53)
[2020-03-05] MEDS: GABAPENTIN 300 MG CAPSULE PO ×3 (08:53→18:15)
[2020-03-05] MEDS: PANTOPRAZOLE 40 MG TABLET PO (08:53)
[2020-03-05] MEDS: FUROSEMIDE INJ 40 MG/4 ML VIAL 20 MG IV PUSH (08:53)
[2020-03-05] MEDS: IRON SUCROSE COMPLEX 200 MG in SODIUM CHLORIDE 0.9% IV 50 ML 120 MG IVPB (08:57)
--- NOTE | 2020-03-05 09:25 | PM.IMPN ---
Progress Note: A&P Assessment and Plan (1) Acute on chronic systolic and diastolic heart failure, NYHA class 1: Code(s): I50.43 - Acute on chronic combined systolic (congestive) and diastolic (congestive) heart failure Status: Acute Assessment and Plan: Echo from September 2019 shows EF 35-40% with increased LV wall thickness and grade 3 diastolic dysfunction. He denies shortness of breath. Lungs exam reveals mild b/l crackles mid-bases. No lower extremity edema. Continue IV Lasix at reduced dose 20 mg IV given renal insufficiency, for now; consider stopping if showing improvement or worsening renal function continue heart healthy diet, monitor daily weights and I&O (2) Acute on chronic renal insufficiency: Code(s): N28.9 - Disorder of kidney and ureter, unspecified; N18.9 - Chronic kidney disease, unspecified Status: Acute Assessment and Plan: Creatinine 5.5 at presentation. Baseline appears to be around 2.6. creatinine is 5.0 today. Etiology for this acute worsening is unclear at this time. Dr. Hurst is following and his recommendations are appreciated. Plan for renal biopsy on Saturday. Patient concerned about procedure (3) Anemia: Code(s): D64.9 - Anemia, unspecified Status: Acute Assessment and Plan: Hemoglobin decreased from baseline. 8.0 today. Iron panel reveals low iron saturation. Hemoccult is positive. Denies melena or hematochezia. VSS. Continue IV venofer per Nephrology Monitor H&H closely; will obtain H&H this afternoon given drop in Hgb. Consider GI workup if further decline but I do not believe patient would consent to additional tests/procedures. (4) Essential (primary) hypertension: Code(s): I10 - Essential (primary) hypertension Status: Chronic Assessment and Plan: blood pressure review today and is stable in the 130ssystolic. Continue diuretics. Entresto has been held. Monitor blood pressure daily (5) Type 2 diabetes mellitus with hyperglycemia: Qualifiers: Diabetes mellitus termite exterminator insulin use: with assisted use Qualified Code(s): E11.65 - Type 2 diabetes mellitus with hyperglycemia; Z79.4 - long-term (current) use of insulin Code(s): E11.65 - Type 2 diabetes mellitus with hyperglycemia Status: Chronic Assessment and Plan: Blood sugars have been elevated in the 200s. Most recent A1c 8.5. Continue Accu-Cheks ACHS, SSI, hypoglycemic protocol oral hypoglycemics are on hold Consider addition of long-acting insulin if blood sugars remain elevated. (6) Acute UTI: Code(s): N39.0 - Urinary tract infection, site not specified Status: Resolved Assessment and Plan: UA was suspicious for UTI but urine culture negative. Patient is asymptomatic, afebrile, and no additional signs/symptoms of infection. Discontinue IV Rocephin. (7) Hyponatremia: Code(s): E87.1 - Hypo-osmolality and hyponatremia Status: Acute Assessment and Plan: Sodium is stable at 136. Monitor BMP daily (8) BPH (benign prostatic hyperplasia): Code(s): N40.0 - Benign prostatic hyperplasia without lower urinary tract symptoms Status: Chronic Assessment and Plan: Denies lower urinary tract symptoms. He has been urinating without difficulty. Urine output is adequate and no evidence of urinary retention. continue Flomax (9) Atrial fibrillation/flutter: Code(s): I48.91 - Unspecified atrial fibrillation; I48.92 - Unspecified atrial flutter Status: Chronic Assessment and Plan: Rate is controlled. Continue charles Grace
[2020-03-05 10:46] LABS: Glucose Point of Care 193 (65-105)
[2020-03-05 12:19] LABS: Glucose Point of Care 274 (65-105)
[2020-03-05] MEDS: INSULIN ASPART (*BKC) 100 UNITS/ML SUB-Q (13:17)
[2020-03-05 13:31] LABS: Hematocrit 26.8 % (42.0-52.0); Hemoglobin 8.3 g/dL (14.0-18.0)
[2020-03-05 14:00] VITALS: BP 145/70; PULSE 60; RESP 20; TEMP 36.7; O2SAT 96
--- NOTE | 2020-03-05 15:04 | PM.PNNEP ---
Progress Note: A&P Assessment and Plan (1) Acute on chronic renal insufficiency: Code(s): N28.9 - Disorder of kidney and ureter, unspecified; N18.9 - Chronic kidney disease, unspecified Status: Acute Assessment and Plan: the patient has chronic kidney disease. Sed rate is 24. Complements are low. Await other serology. Immuno fix are pending his creatinine is slightly better. Platelet count is 109. He is on Eliquis; this is on hold. We discussed biopsy on Saturday. We discussed the procedure, risks, benefits, and alternatives. This includes bleeding enough to cause blood transfusion or procedure if the bleeding will not stop. He agrees to proceed. (2) Acute UTI: Code(s): N39.0 - Urinary tract infection, site not specified Status: Resolved Assessment and Plan: culture negative (3) Anemia: Code(s): D64.9 - Anemia, unspecified Status: Acute Assessment and Plan: Hemoglobin is low. This is bouncing around in the 8s T sat is low. hemoccult is positive. on Venofer discussed with JENI Acosta (4) Hyponatremia: Code(s): E87.1 - Hypo-osmolality and hyponatremia Status: Acute Assessment and Plan: Sodium level is mildly low. This is probably due to renal failure. (5) Fluid overload, unspecified: Code(s): E87.70 - Fluid overload, unspecified Status: Acute Assessment and Plan: he is resting comfortably in bed without oxygen. No shortness of breath The patient has severe pulmonary hypertension which would explain the ascites, pleural effusions, and edema. He also has some left-sided heart failure as well with an EF of only 35-40%. He also has severe left ventricular hypertrophy and diastolic dysfunction which probably contributes as well. Subjective Date/time seen: 03/05/20 15:04 Interval history: Patient feels better today. he didn't sleep last night No shortness of breath. No chest pain. Review of Systems Cardiovascular: Cardiovascular: Reports no additional cardiovascular complaints Respiratory: Respiratory: Reports no additional respiratory complaints Gastrointestinal: Gastrointestinal: Reports no additional gastrointestinal complaints Genitourinary: Genitourinary: Reports no additional male genitourinary complaints Exam Narrative: Exam Narrative: Well developed well-nourished gentleman in no acute distress Skin No rash Head normocephalic atraumatic Lungs are symmetric and clear to ausc Heart regular rate rhythm no rub or gallop Abdomen bowel sounds positive soft nontender Extremities no edema Objective Data Vital Signs Vital Signs: Vital Signs - 24 hr 03/04/20 21:25 03/04/20 22:00 03/05/20 06:00 Temperature 36.6 C 36.7 C Pulse Rate 72 60 63 Respiratory Rate 20 20 Blood Pressure 141/78 H 139/85 Pulse Oximetry 97 94 03/05/20 08:00 03/05/20 08:52 03/05/20 14:00 Temperature 36.7 C Pulse Rate 60 60 60 Respiratory Rate 20 20 Blood Pressure 145/70 H Pulse Oximetry 94 96 Intake/Output Intake/Output: Intake & Output 03/02/20 03/03/20 03/04/20 03/05/20 23:59 23:59 23:59 23:59 Intake Total 290 1260 2900 960 Output Total 700 1550 Balance 358 661 0709 960 Meds/Results Medications: Active Medications Generic Name Dose Route Start Last Admin Trade Name Freq PRN Reason Stop Dose Admin Amiodarone HCl 200 mg 03/03/20 09:00 03/05/20 08:52 Pacerone PO 200 mg DAILY ARTHUR Administration Bupropion HCl 100 mg 03/03/20 09:00 03/05/20 08:52 Wellbutrin PO 100 mg DAILY ARTHUR Administration Carvedilol 25 mg 03/03/20 09:00 03/05/20 08:52 Coreg PO 25 mg Q12HR ARTHUR Administration Dextrose 12.5 gm 03/02/20 20:36 Dextrose 50% Syringe IV PUSH PRN PRN Hypoglycemia Protocol Furosemide 20 mg 03/04/20 09:00 03/05/20 08:53 Lasix Inj IV PUSH 20 mg DAILY ARTHUR Administr
[2020-03-05] MEDS: INDAPAMIDE 2.5 MG TABLET PO (18:15)
[2020-03-05 20:36] VITALS: PULSE 60
[2020-03-05 21:12] LABS: Glucose Point of Care 223 (65-105)
[2020-03-05 22:00] VITALS: BP 141/73; PULSE 60; RESP 20; TEMP 36.8; O2SAT 91
[2020-03-06 02:18] LABS: Glucose Point of Care 155 (65-105)
[2020-03-06 06:00] VITALS: BP 149/79; PULSE 60; RESP 18; TEMP 36.9; O2SAT 95
[2020-03-06 06:12] LABS: Basophils Percent Auto 0.7 % (0.2-1.2); Eosinophils Absolute Auto 0.1 K/mm3 (0-0.3); Hematocrit 25.8 % (42.0-52.0); Immature Granulocyte Absolute 0.02 K/mm3 (0.00-0.031); Immature Granulocyte Percent A 0.3 % (0-0.5); Lymphocytes Absolute Auto 0.84 K/mm3 (0.9-3.2); Lymphocytes Percent Auto 13.7 % (18.3-44.2); Mean Corpuscular Hemoglobin 24.8 pg (26-34); Mean Corpuscular Volume 80.1 fl (80-100); Mean Platelet Volume 11.2 fl (7.4-10.4); Monocytes Absolute Auto 0.5 K/mm3 (0.1-0.6); Neutrophils Absolute Auto 4.6 K/mm3 (1.3-6.7); Neutrophils Percent Auto 75.3 % (45.5-73.1); Platelet Count Result 132 k/mm3 (150-375); Red Blood Count 3.22 M/mm3 (4.6-6.20); Red Cell Distribution Width 14.8 % (11.5-14.5); White Blood Count 6.1 K/mm3 (4.5-10.0)
[2020-03-06 06:31] LABS: Alanine Aminotransferase 24 U/L (4-50); Albumin Level 3.3 g/dL (3.5-5.1); Alkaline Phosphatase 155 U/L (38-126); Anion Gap 8 mmol/L (8-16); Aspartate Amino Transferase 25 U/L (17-59); Bilirubin,Total 0.5 mg/dL (0.2-1.3); Blood Urea Nitrogen 57 mg/dL (9-20); Calcium 8.3 mg/dL (8.4-10.2); Carbon Dioxide 26 mmol/L (22-30); Chloride 102 mmol/L (98-107); Estimated CRCL calculation 12 ml/min; Estimated Glomerular Filt Rate 12; Glucose 179 mg/dL (75-110); Magnesium 1.8 mg/dL (1.6-2.3); Phosphorus 4.3 mg/dL (2.5-4.5); Potassium 3.6 mmol/L (3.4-5.0); Sodium 136 mmol/L (137-145)
[2020-03-06 08:40] LABS: Glucose Point of Care 170 (65-105)
[2020-03-06] MEDS: FUROSEMIDE INJ 40 MG/4 ML VIAL 20 MG IV PUSH (09:12)
[2020-03-06 09:13] VITALS: PULSE 62
[2020-03-06] MEDS: carvediloL 25 MG TABLET PO ×2 (09:13→20:09)
[2020-03-06 09:17] VITALS: PULSE 62
[2020-03-06] MEDS: AMIODARONE HCL 200 MG TABLET PO (09:17)
[2020-03-06] MEDS: INDAPAMIDE 2.5 MG TABLET PO (09:17)
[2020-03-06] MEDS: GABAPENTIN 300 MG CAPSULE PO ×3 (09:17→17:32)
[2020-03-06] MEDS: PANTOPRAZOLE 40 MG TABLET PO (09:17)
[2020-03-06] MEDS: buPROPion HCL 100 MG TABLET PO (09:17)
[2020-03-06] MEDS: TAMSULOSIN HCL 0.4 MG CAPSULE PO (09:18)
--- NOTE | 2020-03-06 10:02 | PM.PNNEP ---
Progress Note: A&P Assessment and Plan (1) Acute on chronic renal insufficiency: Code(s): N28.9 - Disorder of kidney and ureter, unspecified; N18.9 - Chronic kidney disease, unspecified Status: Acute Assessment and Plan: the patient has chronic kidney disease. Sed rate is 24. Complements are low. Await other serology. Immuno fix are pending his creatinine is slightly better. platelet count is up to 132. He is on Eliquis; this is on hold. We discussed biopsy on Saturday. We discussed the procedure, risks, benefits, and alternatives. This includes bleeding enough to cause blood transfusion or procedure if the bleeding will not stop. He agrees to proceed. (2) Acute UTI: Code(s): N39.0 - Urinary tract infection, site not specified Status: Resolved Assessment and Plan: culture negative (3) Anemia: Code(s): D64.9 - Anemia, unspecified Status: Acute Assessment and Plan: Hemoglobin is low. This is bouncing around in the 8s T sat is low. hemoccult is positive. on He should see Dr. Ivey as an outpatient. He will eventually need Epogen shots. discussed with JENI Acosta (4) Hyponatremia: Code(s): E87.1 - Hypo-osmolality and hyponatremia Status: Acute Assessment and Plan: Sodium level is mildly low. This is probably due to renal failure. (5) Fluid overload, unspecified: Code(s): E87.70 - Fluid overload, unspecified Status: Acute Assessment and Plan: he is resting comfortably in bed without oxygen. No shortness of breath The patient has severe pulmonary hypertension which would explain the ascites, pleural effusions, and edema. He also has some left-sided heart failure as well with an EF of only 35-40%. He also has severe left ventricular hypertrophy and diastolic dysfunction which probably contributes as well. Subjective Date/time seen: 03/06/20 10:02 Interval history: Patient feels better today. In good spirits. We reviewed plans. Will get kidney biopsy tomorrow. Restart Eliquis on Saturday as long as he does not have complication. No shortness of breath. No chest pain. Review of Systems Cardiovascular: Cardiovascular: Reports no additional cardiovascular complaints Respiratory: Respiratory: Reports no additional respiratory complaints Gastrointestinal: Gastrointestinal: Reports no additional gastrointestinal complaints Genitourinary: Genitourinary: Reports no additional male genitourinary complaints Exam Narrative: Exam Narrative: WDWN in NAD skin no rash head ncat lungs clear Bilaterally cor reg no rub abd BS+ nontender and soft ext no edema. Objective Data Vital Signs Vital Signs: Vital Signs - 24 hr 03/05/20 14:00 03/05/20 20:36 03/05/20 22:00 Temperature 36.7 C 36.8 C Pulse Rate 60 60 60 Respiratory Rate 20 20 Blood Pressure 145/70 H 141/73 H Pulse Oximetry 96 91 03/06/20 06:00 03/06/20 09:13 03/06/20 09:17 Temperature 36.9 C Pulse Rate 60 62 62 Respiratory Rate 18 Blood Pressure 149/79 H Pulse Oximetry 95 Intake/Output Intake/Output: Intake & Output 03/03/20 03/04/20 03/05/20 03/06/20 23:59 23:59 23:59 23:59 Intake Total 1260 2900 1980 800 Output Total 700 1550 Balance 560 1350 1980 800 Meds/Results Medications: Active Medications Generic Name Dose Route Start Last Admin Trade Name Freq PRN Reason Stop Dose Admin Amiodarone HCl 200 mg 03/03/20 09:00 03/06/20 09:17 Pacerone PO 200 mg DAILY ARTHUR Administration Bupropion HCl 100 mg 03/03/20 09:00 03/06/20 09:17 Wellbutrin PO 100 mg DAILY ARTHUR Administration Carvedilol 25 mg 03/03/20 09:00 03/06/20 09:13 Coreg PO 25 mg Q12HR ARTHUR Administration Dextrose 12.5 gm 03/02/20 20:36 Dextrose 50% Syringe IV PUSH PRN PRN Hypoglycemia Protocol Furosemide 20 mg
[2020-03-06 12:48] LABS: Glucose Point of Care 235 (65-105)
[2020-03-06] MEDS: INSULIN ASPART (*BKC) 100 UNITS/ML SUB-Q ×2 (12:48→17:32)
[2020-03-06] MEDS: IRON SUCROSE COMPLEX 200 MG in SODIUM CHLORIDE 0.9% IV 50 ML 120 MG IVPB (12:49)
[2020-03-06 14:00] VITALS: BP 137/60; PULSE 60; RESP 20; TEMP 36.6; O2SAT 99
--- NOTE | 2020-03-06 14:11 | PM.IMPN ---
Progress Note: A&P Assessment and Plan (1) Acute on chronic systolic and diastolic heart failure, NYHA class 1: Code(s): I50.43 - Acute on chronic combined systolic (congestive) and diastolic (congestive) heart failure Status: Acute Assessment and Plan: Echo from September 2019 shows EF 35-40% with increased LV wall thickness and grade 3 diastolic dysfunction. He denies shortness of breath. Lungs exam reveals b/l bibasilar crackles; improvement from yesterday. No lower extremity edema. Patient notes taking prn PO Lasix at home Will stop lasix for now continue heart healthy diet, monitor daily weights and I&O (2) Acute on chronic renal insufficiency: Code(s): N28.9 - Disorder of kidney and ureter, unspecified; N18.9 - Chronic kidney disease, unspecified Status: Acute Assessment and Plan: Creatinine 5.5 at presentation. Baseline appears to be around 2.6. creatinine is 4.90 today. Etiology for this acute worsening is unclear at this time. Dr. Hurst is following and his recommendations are appreciated. Plan for renal biopsy on Saturday Await for further recommendations after biopsy; possible discharge if okay with Nephrology (3) Anemia: Code(s): D64.9 - Anemia, unspecified Status: Acute Assessment and Plan: Hemoglobin decreased from baseline. 8.0 today. Iron panel reveals low iron saturation. Percent retic 1.60. Hemoccult is positive. Denies melena or hematochezia. VSS. Discussed with Dr. Hurst and patient will likely need referral to Heme/Onc as outpatient for possible Epogen injections and f/u with his established GI physician, Dr. Moore Continue IV venofer per Nephrology Monitor H&H closely Referral to Dr. Ivey as an outpatient at discharge F/u with Dr. Moore for further outpatient work up of positive stool occult (4) Essential (primary) hypertension: Code(s): I10 - Essential (primary) hypertension Status: Chronic Assessment and Plan: blood pressure review today and is stable in the 130s systolic. 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 Most recent A1c 8.5. Continue Accu-Cheks ACHS, SSI, hypoglycemic protocol oral hypoglycemics are on hold Consider addition of long-acting insulin if blood sugars remain elevated. (6) Acute UTI: Code(s): N39.0 - Urinary tract infection, site not specified Status: Resolved Assessment and Plan: UA was suspicious for UTI but urine culture negative. Patient is asymptomatic, afebrile, and no additional signs/symptoms of infection. Antibiotics have been stopped (7) Hyponatremia: Code(s): E87.1 - Hypo-osmolality and hyponatremia Status: Acute Assessment and Plan: Sodium is stable at 136. Monitor BMP daily (8) BPH (benign prostatic hyperplasia): Code(s): N40.0 - Benign prostatic hyperplasia without lower urinary tract symptoms Status: Chronic Assessment and Plan: Denies lower urinary tract symptoms. He has been urinating without difficulty. Urine output is adequate and no evid
[2020-03-06 17:59] LABS: Glucose Point of Care 213 (65-105)
[2020-03-06 20:09] VITALS: PULSE 67
[2020-03-06 22:00] VITALS: BP 157/73; PULSE 63; RESP 18; TEMP 36.4; O2SAT 100
[2020-03-06 22:21] LABS: Glucose Point of Care 212 (65-105)
[2020-03-07 06:00] VITALS: BP 133/69; PULSE 58; RESP 18; TEMP 36.4; O2SAT 92
[2020-03-07 06:00] LABS: Hematocrit 26.6 % (42.0-52.0); Hemoglobin 8.2 g/dL (14.0-18.0); Mean Corpuscular HGB Conc 30.8 g/dl (32-36); Mean Corpuscular Hemoglobin 24.4 pg (26-34); Mean Corpuscular Volume 79.2 fl (80-100); Mean Platelet Volume 9.9 fl (7.4-10.4); Platelet Count Result 129 k/mm3 (150-375); Red Blood Count 3.36 M/mm3 (4.6-6.20); Red Cell Distribution Width 14.7 % (11.5-14.5); White Blood Count 5.8 K/mm3 (4.5-10.0)
[2020-03-07 06:07] LABS: INR 1.3
[2020-03-07 06:08] LABS: Partial Thromboplastin Time 35.3 SECONDS (22.3-36.8)
[2020-03-07 06:17] LABS: Albumin Level 3.4 g/dL (3.5-5.1); Anion Gap 7 mmol/L (8-16); Blood Urea Nitrogen 59 mg/dL (9-20); Calcium 8.6 mg/dL (8.4-10.2); Carbon Dioxide 27 mmol/L (22-30); Chloride 101 mmol/L (98-107); Estimated CRCL calculation 12 ml/min; Estimated Glomerular Filt Rate 12; Glucose 215 mg/dL (75-110); Magnesium 1.9 mg/dL (1.6-2.3); Phosphorus 4.1 mg/dL (2.5-4.5); Potassium 3.8 mmol/L (3.4-5.0); Sodium 135 mmol/L (137-145)
[2020-03-07 08:00] VITALS: PULSE 58; RESP 18; O2SAT 92
[2020-03-07] MEDS: IRON SUCROSE COMPLEX 200 MG in SODIUM CHLORIDE 0.9% IV 50 ML 120 MG IVPB (09:15)
--- NOTE | 2020-03-07 09:39 | PC.NURSE ---
Spoke with Dedra Acosta. Said hold all meds until pt returns from biopsy. Continue holding Eliquis.
[2020-03-07 10:31] LABS: Glucose Point of Care 175 (65-105)
--- NOTE | 2020-03-07 10:37 | PC.NURSE ---
Pt went down for kidney biopsy.Transport took pt down by stretcher.
[2020-03-07 11:29] VITALS: BP 158/85; BP 161/84; PULSE 60; RESP 22; O2SAT 92; O2SAT 95
--- NOTE | 2020-03-07 12:22 | PM.DS ---
DS: Admitting Diagnosis Admitting Diagnosis Admitting Diagnosis: acute chronic renail insufficiency,uti,anasarca DS: Discharge Diagnosis Discharge Diagnosis (1) Acute on chronic systolic and diastolic heart failure, NYHA class 1: Code(s): I50.43 - Acute on chronic combined systolic (congestive) and diastolic (congestive) heart failure Status: Acute Assessment and Plan: Echo from September 2019 shows EF 35-40% with increased LV wall thickness and grade 3 diastolic dysfunction. He denies shortness of breath. Lung exam CTAB, diminshed breath sounds. No lower extremity edema. Patient notes taking prn PO Lasix at home F/u with his established brick or block maker Resume home regimen at discharge d/c today Instructed him to continue weighing himself daily (2) Acute on chronic renal insufficiency: Code(s): N28.9 - Disorder of kidney and ureter, unspecified; N18.9 - Chronic kidney disease, unspecified Status: Acute Assessment and Plan: Creatinine 5.5 at presentation. Baseline appears to be around 2.6. creatinine is 4.90 today; stable. Etiology for this acute worsening is unclear at this time. Discussed case with Dr. Guzman today who is okay for discharge with follow up with him as an outpatient about his renal biopsy results done today F/u with Dr. Guzman as outpatient BMP later this week Will resume (48 hours after procedure) (3) Anemia: Code(s): D64.9 - Anemia, unspecified Status: Acute Assessment and Plan: Hemoglobin decreased from baseline. 8.2 today. Iron panel reveals low iron saturation. Percent retic 1.60. Hemoccult is positive. Denies melena or hematochezia. VSS. Discussed with Dr. Hurst earlier in stay and patient will likely need referral to Heme/Onc as outpatient for possible Epogen injections and f/u with his established GI physician, Dr. Oscar magaña during stay per Nephrology rec CBC later this week Referral to Dr. Ivey as an outpatient at discharge F/u with Dr. Moore for further outpatient work up of positive stool occult (4) Essential (primary) hypertension: Code(s): I10 - Essential (primary) hypertension Status: Chronic Assessment and Plan: blood pressure review today and is stable in the 150s systolic. Entresto has been held; will likely continue to hold until instructed by his Home Administrator Continue home medications as prescribed He will need f/u with his Home Administrator Monitor blood pressure daily (5) Type 2 diabetes mellitus with hyperglycemia: Qualifiers: Diabetes mellitus predatory animal exterminator insulin use: with group home use Qualified Code(s): E11.65 - Type 2 diabetes mellitus with hyperglycemia; Z79.4 - watermelon harvesting supervisor (current) use of insulin Code(s): E11.65 - Type 2 diabetes mellitus with hyperglycemia Status: Chronic Assessment and Plan: Blood sugars have been elevated in the 200s. Most recent A1c 8.5. Continue Accu-Cheks ACHS, SSI, hypoglycemic protocol oral hypoglycemics are on hold (6) Acute UTI: Code(s): N39.0 - Urinary tract infection, site not specified Status: Resolved Assessment and Plan: UA was suspicious for UTI but urine culture negative. Patient is asymptomatic, afebrile, and no additional signs/symptoms of infection. Antibiotics have been stopped (7) Hyponatremia: Code(s): E87.1 - Hypo-osmolality and hyponatremia Status: Acute Assessment and Plan: Sodium is stable at 135. Monitor BMP daily (8) BPH (benign prostatic hyperplasia): Code(s): N40.0 - Benign prostatic hyperplasia without lower urinary tract symptoms Status: Chronic
[2020-03-07 12:53] LABS: Glucose Point of Care 173 (65-105)
[2020-03-07 13:30] VITALS: PULSE 80
[2020-03-07] MEDS: INDAPAMIDE 2.5 MG TABLET PO (13:30)
[2020-03-07] MEDS: carvediloL 25 MG TABLET PO (13:30)
[2020-03-07] MEDS: TAMSULOSIN HCL 0.4 MG CAPSULE PO (13:30)
[2020-03-07 13:31] VITALS: PULSE 80
[2020-03-07] MEDS: AMIODARONE HCL 200 MG TABLET PO (13:31)
[2020-03-07] MEDS: PANTOPRAZOLE 40 MG TABLET PO (13:31)
[2020-03-07] MEDS: GABAPENTIN 300 MG CAPSULE PO (13:31)
[2020-03-07] MEDS: buPROPion HCL 100 MG TABLET PO (13:31)
[2020-03-07 15:37] LABS: Kappa\\Lambda Light Chains 1.74 (0.26-1.65); Lambda Light Chain 60.3 mg/L (5.7-26.3)
[2020-03-07 19:56] LABS: Complement Total CH50 52 U/mL (31-60)
[2020-03-07 22:06] LABS: Albumin 3.3 g/dL (3.8-4.8); Alpha 1 Globulin 0.3 g/dL (0.2-0.3); Alpha 2 Globulin 0.6 g/dL (0.5-0.9); Beta 1 Globulin 0.4 g/dL (0.4-0.6); Gamma Globulin 0.9 g/dL (0.8-1.7); Protein, Total 5.7 g/dL (6.1-8.1)
[2020-03-08 17:07] LABS: Soluble Transferrin Receptor 1.69 mg/L (0.76-1.76)
[2020-03-09 05:41] LABS: Haptoglobin 100 mg/dL (43-212)
[2020-03-10 10:23] LABS: ANCA Screen Negative (Negative)
[2020-03-10 11:54] LABS: Anti Glomerular Basement Memb <1.0 AI (<1.0)
== END 2020-03-07 14:30 | disposition home or self-care (01) | DRG 291 ==
LOC: ANHED 12:01 → ANH3MEDSUR 12:03
PROVIDERS: Internal Medicine Nephrology; Nurse Practitioner; Physician Assistant; Admitting Provider Internal Medicine; Emergency Provider Emergency Medicine; PCP Family Medicine; Visit Provider Physician Assistant
DX: I13.0 Hypertensive heart and chronic kidney disease with heart failure and stage 1 through stage 4 chronic kidney disease, or unspecified chronic kidney disease (principal); I50.43 Acute on chronic combined systolic (congestive) and diastolic (congestive) heart failure; N17.9 Acute kidney failure, unspecified; E87.1 Hypo-osmolality and hyponatremia; I48.20 Chronic atrial fibrillation, unspecified; N39.0 Urinary tract infection, site not specified; I48.92 Unspecified atrial flutter; E11.65 Type 2 diabetes mellitus with hyperglycemia; E11.22 Type 2 diabetes mellitus with diabetic chronic kidney disease; N18.3 Chronic kidney disease, stage 3 (moderate); E11.21 Type 2 diabetes mellitus with diabetic nephropathy; E11.42 Type 2 diabetes mellitus with diabetic polyneuropathy; E11.3292 Type 2 diabetes mellitus with mild nonproliferative diabetic retinopathy without macular edema, left eye; E11.3491 Type 2 diabetes mellitus with severe nonproliferative diabetic retinopathy without macular edema, right eye; H35.033 Hypertensive retinopathy, bilateral; E11.36 Type 2 diabetes mellitus with diabetic cataract; F32.9 Major depressive disorder, single episode, unspecified; N40.0 Benign prostatic hyperplasia without lower urinary tract symptoms; D63.1 Anemia in chronic kidney disease; I25.10 Atherosclerotic heart disease of native coronary artery without angina pectoris; M19.90 Unspecified osteoarthritis, unspecified site; E78.2 Mixed hyperlipidemia; K21.9 Gastro-esophageal reflux disease without esophagitis; I27.20 Pulmonary hypertension, unspecified; Z79.01 Long term (current) use of anticoagulants; Z86.73 Personal history of transient ischemic attack (TIA), and cerebral infarction without residual deficits; Z86.718 Personal history of other venous thrombosis and embolism; Z79.4 Long term (current) use of insulin; Z87.891 Personal history of nicotine dependence; Z95.810 Presence of automatic (implantable) cardiac defibrillator
CPT/HCPCS: 36415; 50200; 51701; 70450; 71045; 74176; 76775; 76942; 80053; 80069; 81001; 82247; 82248; 82274; 82550; 82570; 82607; 82728; 82746; 83010; 83520; 83540; 83550; 83615; 83735; 83883; 83970; 84155; 84156; 84165; 84238; 84300; 84466; 85014; 85018; 85025; 85027; 85046; 85610; 85652; 85730; 85999; 86021; 86038; 86160; 86162; 86334; 86335; 86850; 86860; 86870; 86880; 86900; 86901; 86971; 87040; 87086; 88300; 88305; 88313; 88329; 88346; 88348; 88350; 96365; 96367; 96375; 96376; 99285; A9270; G0378; J0696; J1756; J1815; J1940